=== PATIENT | male | born 1935 | race Caucasian/White ===

== ENCOUNTER 2016-12-12 14:32 | Emergency (ER) | payer MEDICARE, OTHER ==
[2014-08-06 15:09] VITALS: BMI 23.9
[~2016-12-12 14:32] MED LIST: ACETAMINOPHEN325 MG NG; ADVAIR 100/501 DISK INH; ARICEPT10 MG PO; CATAPRES0.1 MG; CATAPRES0.1 MG PO; DULCOLAX10 MG/SUPP RC; FLOMAX0.4 MG PO; GLUCOPHAGE500 MG; HYDROCODON-ACE1 EAC7 PO; HYDROCODON-ACE1 EAC8 PO; IPRAT-ALBUT 0.5-3 ML UPD; LISINOPRIL10 MG PO; MILK OF MAGNESI30 ML PO; MIRALAX17 GM PO; NEURONTIN 300300 MG PO; NITROSTAT0.4 MG; ONDANSETRON4 MG/2 M3 PO; PRILOSEC20 MG PO; PROAIR HFA8.5 GM INH; PROTONIX40 MG PO; SENOKOT-S TABLE1 TAB PO; VENTOLIN HFA18 GM; ZOCOR40 MG PO
[2016-12-12 17:15] LABS: BASOPHILS 0 % (0.0-2.0); EOSINOPHILS 9.3 % (0-7); HEMATOCRIT 37.6 % (42.0-54.0); HEMOGLOBIN 12.7 g/dL (13.5-17.5); IMMATURE GRANULOCYTES 0.4 % (0-5); LYMPHOCYTES 7.6 % (15-50); MCH 32.6 pg (26.0-34.0); MCHC 33.8 g/dL (31.0-37.0); MCV 96.4 fL (80.0-100.0); MEAN PLATELET VOLUME 10.3 fL (7.4-10.4); MONOCYTES 5.1 % (2-11); NEUTROPHILS 77.6 % (40-80); PLATELET COUNT 80 10x3/uL (130-400); WBC 2.4 10x3/uL (4.8-10.8)
[2016-12-12 17:28] LABS: ALBUMIN 3.3 g/dL (3.4-5.0); ALKALINE PHOSPHATASE 149 U/L (46-116); ALT (SGPT) 36 U/L (10-68); CALC OSMOLALITY 275 mosm/kg (275-300); CALCIUM 8.7 mg/dL (8.5-10.1); CARBON DIOXIDE 24.8 mmol/L (21.0-32.0); CHLORIDE - SERUM 103 mmol/L (98-107); GLUCOSE 92 mg/dL (74-106); POTASSIUM - SERUM 3.9 mmol/L (3.5-5.1); PROTEIN - SERUM 4.8 g/dL (6.4-8.2); SODIUM 137 mmol/L (136-145); UREA NITROGEN 18 mg/dL (7-18); eGFR NON AFRICAN AMERICAN 76 mL/min (90-120)
[2016-12-12 17:58] LABS: PLATELET ESTIMATE DECREASED
[2016-12-12 18:06] LABS: APPEARANCE CLEAR (CLEAR); BILIRUBIN NEGATIVE (NEGATIVE); COLOR YELLOW (YELLOW); GLUCOSE NEGATIVE (NEGATIVE); KETONE NEGATIVE (NEGATIVE); LEUKOCYTE ESTERASE TRACE (NEGATIVE); NITRITE NEGATIVE (NEGATIVE); PROTEIN NEGATIVE (NEGATIVE); SPECIFIC GRAVITY 1.015 (1.005-1.020); UROBILINOGEN NORMAL (NORMAL)
[2016-12-12 18:07] LABS: BACTERIA FEW /hpf (NONE SEEN); EPITHELIAL CELLS NSEEN /hpf (0-5); RED CELLS - URINE 0-5 /hpf (0-5); WHITE CELLS - URINE 0-5 /hpf (0-5)
== END 2016-12-12 20:00 | disposition home or self-care (01) ==
LOC: D.ER 14:32
PROVIDERS: Emergency Medicine; Physician Assistant Medical
DX: S40.012A Contusion of left shoulder, initial encounter (principal); W01.0XXA Fall on same level from slipping, tripping and stumbling without subsequent striking against object, initial encounter; Y93.89 Activity, other specified; Y92.129 Unspecified place in nursing home as the place of occurrence of the external cause; S70.02XA Contusion of left hip, initial encounter; J44.9 Chronic obstructive pulmonary disease, unspecified; F03.90 Unspecified dementia, unspecified severity, without behavioral disturbance, psychotic disturbance, mood disturbance, and anxiety; I10 Essential (primary) hypertension

== ENCOUNTER 2016-12-31 20:07 | Emergency (ER) | payer MEDICARE, OTHER ==
[2014-08-06 15:09] VITALS: BMI 23.9
[2016-12-31 20:47] LABS: HEMATOCRIT 34.9 % (42.0-54.0); HEMOGLOBIN 11.5 g/dL (13.5-17.5); MCH 31.9 pg (26.0-34.0); MCV 96.7 fL (80.0-100.0); MEAN PLATELET VOLUME 10.3 fL (7.4-10.4); PLATELET COUNT 88 10x3/uL (130-400); RBC 3.61 10x6/uL (4.20-6.10); RDW 13.8 % (11.5-14.5); WBC 2.7 10x3/uL (4.8-10.8)
[2016-12-31 20:58] LABS: ALBUMIN 3.2 g/dL (3.4-5.0); ALKALINE PHOSPHATASE 163 U/L (46-116); ALT (SGPT) 37 U/L (10-68); AMYLASE - SERUM 82 U/L (25-115); BILIRUBIN - TOTAL 0.36 mg/dL (0.2-1.3); CALC OSMOLALITY 281 mosm/kg (275-300); CALCIUM 8.8 mg/dL (8.5-10.1); CARBON DIOXIDE 25.6 mmol/L (21.0-32.0); CHLORIDE - SERUM 104 mmol/L (98-107); CREATINE KINASE 35 UL (21-232); CREATININE - SERUM 0.8 mg/dL (0.6-1.3); GLUCOSE 122 mg/dL (74-106); LIPASE 320 U/L (73-393); POTASSIUM - SERUM 3.8 mmol/L (3.5-5.1); PROTEIN - SERUM 7.7 g/dL (6.4-8.2); SODIUM 140 mmol/L (136-145); TROPONIN-I 0.032 ng/mL (0.000-0.060); UREA NITROGEN 18 mg/dL (7-18); eGFR NON AFRICAN AMERICAN > 90 mL/min (90-120)
[2016-12-31 21:15] LABS: BASOPHILS 1 % (0.0-2.0); EOSINOPHILS 5 % (0-7); LYMPHOCYTES 29 % (15-50); MONOCYTES 2 % (2-11); NEUTROPHILS 63 % (40-80); PLATELET ESTIMATE DECREASED
== END 2016-12-31 23:20 | disposition home or self-care (01) ==
LOC: D.ER 20:07
PROVIDERS: Family Medicine
DX: S39.012A Strain of muscle, fascia and tendon of lower back, initial encounter (principal); W05.0XXA Fall from non-moving wheelchair, initial encounter; Y93.89 Activity, other specified; Y92.129 Unspecified place in nursing home as the place of occurrence of the external cause; J44.9 Chronic obstructive pulmonary disease, unspecified; F03.90 Unspecified dementia, unspecified severity, without behavioral disturbance, psychotic disturbance, mood disturbance, and anxiety; E11.9 Type 2 diabetes mellitus without complications

== ENCOUNTER 2017-01-08 15:19 | Emergency (ER) | payer MEDICARE, OTHER ==
[2014-08-06 15:09] VITALS: BMI 23.9
[2017-01-08 16:19] LABS: APPEARANCE CLEAR (CLEAR); BILIRUBIN NEGATIVE (NEGATIVE); COLOR YELLOW (YELLOW); GLUCOSE NEGATIVE (NEGATIVE); KETONE NEGATIVE (NEGATIVE); LEUKOCYTE ESTERASE NEGATIVE (NEGATIVE); NITRITE NEGATIVE (NEGATIVE); PROTEIN NEGATIVE (NEGATIVE); UROBILINOGEN NORMAL (NORMAL)
== END 2017-01-08 19:35 | disposition home or self-care (01) ==
LOC: D.ER 15:19
PROVIDERS: Nurse Practitioner Family
DX: S30.0XXA Contusion of lower back and pelvis, initial encounter (principal); W01.0XXA Fall on same level from slipping, tripping and stumbling without subsequent striking against object, initial encounter; Y93.89 Activity, other specified; Y92.129 Unspecified place in nursing home as the place of occurrence of the external cause; J44.9 Chronic obstructive pulmonary disease, unspecified; F03.90 Unspecified dementia, unspecified severity, without behavioral disturbance, psychotic disturbance, mood disturbance, and anxiety; E11.9 Type 2 diabetes mellitus without complications; Z86.73 Personal history of transient ischemic attack (TIA), and cerebral infarction without residual deficits

== ENCOUNTER → 2017-02-10 09:16 | Outpatient (CLI) | payer MEDICARE, OTHER ==
[2014-08-06 15:09] VITALS: BMI 23.9
[2017-02-10 11:15] LABS: CREATININE - SERUM 0.9 mg/dL (0.6-1.3)
--- NOTE | 2017-02-14 06:59 | EEG ---
PATIENT:KAREL SOLANO DATE OF SERVICE: 02/10/17 MEDICAL RECORD: [id number] DATE OF : 35 LOCATION: D.MRI ADMISSION DATE: 02/10/17 REFERRING PHYSICIAN: INTERPRETING PHYSICIAN: LEANNA HENRIQUEZ MD DATE OF SERVICE: 02/10/2017 Referred by myself as an outpatient. ELECTROENCEPHALOGRAM NUMBER: [id number] DATE OF EXAMINATION: 02/10/2017 at 10:00 a.m. TECHNICAL DATA: This electroencephalographic recording consisted of approximately 20 minutes of data collection utilizing the international 10/20 system of electrode placement and both referential and non-referential montages. Sixteen channels of electrocerebral recording are accompanied by a 17th channel dedicated to the electrocardiographic rhythm and 2 channels of electromyographic recording. Recording is performed in the awake and drowsy states utilizing activation by photic stimulation. ELECTROENCEPHALOGRAPHIC DATA: The awake state comprises approximately 40% of the recorded electrocerebral activity. Electromyographic artifact is prominent and rapid eye movements are seen. The posterior dominant background consists of a symmetric, semi-rhythmic, waxing and waning 6-7 Hz theta activity, which is suppressed by eye opening. The drowsy state comprises the remaining portion of the recorded electrocerebral activity. Electromyographic artifact is diminished and rapid eye movements are not seen. Occasional irregular, generalized and symmetric slowing in the delta range is also observed in stage I sleep. No focal slowing is identified. No epileptiform discharges are seen. Photic stimulation induces no abnormal change in the recorded electrocerebral activity. INTERPRETATION: Background slow (awake and drowsy). This electroencephalographic recording is indicative of a mild diffuse encephalopathy. TRANSINT:[id number] Voice Confirmation ID: [id number] DOCUMENT ID: [id number] LEANNA HENRIQUEZ MD at 0659 CC: [id number] DICTATION DATE: 02/11/17 0729 PATIENT ADMITTING REPRESENTATIVE: 02/11/17 0810 DEP CLI 02/10/17 [place] [address] [place] [address]
== END | disposition home or self-care (01) ==
LOC: D.CN 02-06 10:00 → D.LAB 02-06 14:00 → D.MRI 09:16
PROVIDERS: Psychiatry & Neurology Neurology
DX: G30.8 Other Alzheimer's disease (principal); I63.139 Cerebral infarction due to embolism of unspecified carotid artery

== ENCOUNTER 2017-11-12 01:02 | Emergency (ER) | payer MEDICARE, OTHER ==
[2014-08-06 15:09] VITALS: BMI 23.9
[2017-11-12 01:33] LABS: BASOPHILS 0 % (0-2); HEMATOCRIT 34.7 % (42.0-54.0); HEMOGLOBIN 11.8 g/dL (13.5-17.5); LYMPHOCYTES 15.8 % (15-50); MCH 32.9 pg (26.0-34.0); MCV 96.7 fL (80.0-100.0); MEAN PLATELET VOLUME 9.3 fL (7.4-10.4); NEUTROPHILS 69.2 % (40-80); PLATELET COUNT 92 10x3/uL (130-400); RBC 3.59 10x6/uL (4.20-6.10); RDW 13.8 % (11.5-14.5); WBC 3.4 10x3/uL (4.8-10.8)
[2017-11-12 01:45] LABS: ALBUMIN 3.2 g/dL (3.4-5.0); ALKALINE PHOSPHATASE 197 U/L (46-116); ALT (SGPT) 41 U/L (10-68); CALC OSMOLALITY 279 mosm/kg (275-300); CALCIUM 8.6 mg/dL (8.5-10.1); CARBON DIOXIDE 27.5 mmol/L (21.0-32.0); CHLORIDE - SERUM 102 mmol/L (98-107); CREATININE - SERUM 0.9 mg/dL (0.6-1.3); GLUCOSE 111 mg/dL (74-106); POTASSIUM - SERUM 3.8 mmol/L (3.5-5.1); SODIUM 138 mmol/L (136-145); UREA NITROGEN 20 mg/dL (7-18); eGFR NON AFRICAN AMERICAN 86 mL/min (90-120)
[2017-11-12 01:53] LABS: LIPASE 275 U/L (73-393); PRO BNP 251 pg/mL (0-450); TROPONIN-I < 0.017 ng/mL (0.000-0.060)
== END 2017-11-12 02:40 | disposition home or self-care (01) ==
LOC: D.ER 01:02
PROVIDERS: Family Medicine
DX: K52.9 Noninfective gastroenteritis and colitis, unspecified (principal); J44.9 Chronic obstructive pulmonary disease, unspecified; E11.9 Type 2 diabetes mellitus without complications

== ENCOUNTER 2018-06-01 06:04 | Emergency (ER) | payer MEDICARE, OTHER ==
[~2018-06-01] VITALS: Ht 167.6 cm; Wt 75.0 kg
[2018-06-01 06:34] VITALS: Ht 167.6 cm; Wt 75.0 kg
[2018-06-01] MEDS ORDERED: BAYER CHEWABLE81 MG PO (06:35)
[2018-06-01] MEDS ORDERED: FLOMAX0.4 MG PO (06:36)
[2018-06-01] MEDS ORDERED: SEROQUEL50 MG PO (06:37)
[2018-06-01] MEDS ORDERED: IMODIUM2 MG (06:38)
[2018-06-01] MEDS ORDERED: LOMOTIL TABLET1 TAB (06:39)
[2018-06-01 07:17] LABS: HEMATOCRIT 32.3 % (42.0-54.0); HEMOGLOBIN 10.8 g/dL (13.5-17.5); MCH 31.5 pg (26.0-34.0); MCHC 33.4 g/dL (31.0-37.0); MCV 94.2 fL (80.0-100.0); MEAN PLATELET VOLUME 9.7 fL (7.4-10.4); PLATELET COUNT 83 10x3/uL (130-400); RBC 3.43 10x6/uL (4.20-6.10); WBC 2.5 10x3/uL (4.8-10.8)
[2018-06-01 07:24] LABS: APTT 31.2 SECONDS (22.8-39.4); INR 1.1 (0.85-1.17); PROTIME 13.8 SECONDS (11.6-15.0)
[2018-06-01 07:40] LABS: ALBUMIN 2.9 g/dL (3.4-5.0); ALKALINE PHOSPHATASE 144 U/L (46-116); ALT (SGPT) 29 U/L (10-68); BILIRUBIN - TOTAL 0.48 mg/dL (0.2-1.3); CALC OSMOLALITY 277 mosm/kg (275-300); CALCIUM 8.7 mg/dL (8.5-10.1); CARBON DIOXIDE 26.2 mmol/L (21.0-32.0); CHLORIDE - SERUM 107 mmol/L (98-107); CREATININE - SERUM 0.8 mg/dL (0.6-1.3); GLUCOSE 101 mg/dL (74-106); POTASSIUM - SERUM 3.9 mmol/L (3.5-5.1); PROTEIN - SERUM 7.6 g/dL (6.4-8.2); SODIUM 139 mmol/L (136-145); UREA NITROGEN 13 mg/dL (7-18); eGFR NON AFRICAN AMERICAN > 90 mL/min (90-120)
[2018-06-01 07:56] LABS: EOSINOPHILS 22 % (0-7); LYMPHOCYTES 24 % (15-50); MONOCYTES 1 % (2-11); NEUTROPHILS 53 % (40-80); PLATELET ESTIMATE DECREASED
[2018-06-01 08:00] LABS: CKMB 1.1 U/L (0.0-3.6); CREATINE KINASE 38 UL (21-232); PRO BNP 158 pg/mL (0-450)
[2018-06-01 08:01] LABS: TROPONIN-I < 0.017 ng/mL (0.000-0.060)
[2018-06-01 14:05] VITALS: BP 124/64
== END 2018-06-01 14:07 ==
LOC: D.ER 06:04
PROVIDERS: Emergency Medicine
DX: R07.9 Chest pain, unspecified (principal); E11.9 Type 2 diabetes mellitus without complications; I10 Essential (primary) hypertension

== ENCOUNTER 2018-12-16 17:17 | Emergency (ER) | payer MEDICARE, OTHER ==
[~2018-12-16] VITALS: Ht 167.6 cm; Wt 63.5 kg
[~2018-12-16 17:17] MED LIST changes: +BAYER CHEWABLE81 MG PO; +IMODIUM2 MG; +LOMOTIL TABLET1 TAB; +SEROQUEL50 MG PO
[2018-12-16 17:19] VITALS: Ht 167.6 cm; Wt 63.5 kg
[2018-12-17 00:30] VITALS: BP 122/76
[2019-01-03] MEDS ORDERED: ROBITUSSIN DM 110 ML (14:27)
[2019-01-03] MEDS ORDERED: HYDROCODON-ACE1 EAC7 PO (14:27)
== END 2018-12-17 00:30 | disposition home or self-care (01) ==
LOC: D.ER 17:17
DX: S42.212A Unspecified displaced fracture of surgical neck of left humerus, initial encounter for closed fracture (principal); W18.30XA Fall on same level, unspecified, initial encounter; Y93.89 Activity, other specified; Y92.099 Unspecified place in other non-institutional residence as the place of occurrence of the external cause; M25.562 Pain in left knee; Z86.73 Personal history of transient ischemic attack (TIA), and cerebral infarction without residual deficits; E11.9 Type 2 diabetes mellitus without complications; I10 Essential (primary) hypertension; J44.9 Chronic obstructive pulmonary disease, unspecified; G30.9 Alzheimer's disease, unspecified; F02.80 Dementia in other diseases classified elsewhere, unspecified severity, without behavioral disturbance, psychotic disturbance, mood disturbance, and anxiety

== ENCOUNTER 2018-12-17 12:14 | Emergency (ER) | payer MEDICARE, OTHER ==
[~2018-12-17] VITALS: Ht 167.6 cm; Wt 63.6 kg
[2018-12-17 12:16] VITALS: Ht 167.6 cm; Wt 63.6 kg
[2018-12-17 13:18] LABS: HEMATOCRIT 29.6 % (42.0-54.0); MCH 31.8 pg (26.0-34.0); MCHC 33.8 g/dL (31.0-37.0); MCV 94.3 fL (80.0-100.0); MEAN PLATELET VOLUME 9.6 fL (7.4-10.4); RBC 3.14 10x6/uL (4.20-6.10); RDW 14.1 % (11.5-14.5); WBC 2.7 10x3/uL (4.8-10.8)
[2018-12-17 13:36] LABS: PLATELET COUNT 107 10x3/uL (130-400)
[2018-12-17 13:38] LABS: APPEARANCE CLEAR (CLEAR); BILIRUBIN NEGATIVE (NEGATIVE); COLOR YELLOW (YELLOW); GLUCOSE NEGATIVE (NEGATIVE); KETONE NEGATIVE (NEGATIVE); NITRITE NEGATIVE (NEGATIVE); PROTEIN NEGATIVE (NEGATIVE); SPECIFIC GRAVITY 1.015 (1.005-1.020)
[2018-12-17 13:39] LABS: ALBUMIN 2.8 g/dL (3.4-5.0); ALKALINE PHOSPHATASE 119 U/L (46-116); ALT (SGPT) 24 U/L (10-68); BILIRUBIN - TOTAL 0.41 mg/dL (0.2-1.3); CALC OSMOLALITY 278 mosm/kg (275-300); CALCIUM 8.3 mg/dL (8.5-10.1); CARBON DIOXIDE 25.6 mmol/L (21.0-32.0); CHLORIDE - SERUM 101 mmol/L (98-107); CREATININE - SERUM 0.9 mg/dL (0.6-1.3); GLUCOSE 115 mg/dL (74-106); POTASSIUM - SERUM 4.1 mmol/L (3.5-5.1); PROTEIN - SERUM 7.9 g/dL (6.4-8.2); SODIUM 138 mmol/L (136-145); UREA NITROGEN 17 mg/dL (7-18); eGFR NON AFRICAN AMERICAN 85 mL/min (90-120)
[2018-12-17 13:43] LABS: INR 1.13 (0.85-1.17)
[2018-12-17 13:44] LABS: APTT 32.5 SECONDS (22.8-39.4)
[2018-12-17 14:44] LABS: EOSINOPHILS 26 % (0-7); LYMPHOCYTES 25 % (15-50); MONOCYTES 9 % (2-11); NEUTROPHILS 39 % (40-80); PLATELET ESTIMATE DECREASED
[2018-12-17 15:20] VITALS: BP 117/73
[2019-01-03] MEDS ORDERED: HYDROCODON-ACE1 EAC7 PO (14:27)
[2019-01-03] MEDS ORDERED: ROBITUSSIN DM 110 ML (14:27)
== END 2018-12-17 14:30 | disposition home or self-care (01) ==
LOC: D.ER 12:14
PROVIDERS: Family Medicine
DX: R04.0 Epistaxis (principal)

== ENCOUNTER 2019-01-04 07:10 | Day surgery (SDC) | payer MEDICARE, OTHER ==
[~2019-01-04] VITALS: Ht 167.6 cm; Wt 70.3 kg
[~2019-01-04 07:10] MED LIST changes: +ROBITUSSIN DM 110 ML
[2019-01-04 07:54] LABS: HEMATOCRIT 30.3 % (42.0-54.0); HEMOGLOBIN 9.8 g/dL (13.5-17.5); MCH 30.7 pg (26.0-34.0); MCHC 32.3 g/dL (31.0-37.0); MEAN PLATELET VOLUME 9.3 fL (7.4-10.4); PLATELET COUNT 114 10x3/uL (130-400); RBC 3.19 10x6/uL (4.20-6.10); RDW 14.1 % (11.5-14.5)
[2019-01-04 08:16] LABS: CALC OSMOLALITY 278 mosm/kg (275-300); CALCIUM 8.7 mg/dL (8.5-10.1); CARBON DIOXIDE 24.5 mmol/L (21.0-32.0); CHLORIDE - SERUM 105 mmol/L (98-107); GLUCOSE 99 mg/dL (74-106); POTASSIUM - SERUM 4.1 mmol/L (3.5-5.1); SODIUM 140 mmol/L (136-145); UREA NITROGEN 12 mg/dL (7-18); eGFR NON AFRICAN AMERICAN 76 mL/min (90-120)
[2019-01-04 08:22] LABS: WBC 1.9 10x3/uL (4.8-10.8)
[2019-01-04 08:39] VITALS: Ht 167.6 cm; Wt 70.3 kg
[2019-01-04 09:07] LABS: BASOPHILS 2 % (0-2); EOSINOPHILS 12 % (0-7); LYMPHOCYTES 36 % (15-50); MONOCYTES 5 % (2-11); NEUTROPHILS 45 % (40-80); PLATELET ESTIMATE DECREASED
--- NOTE | 2019-01-12 09:48 | OP ---
PATIENT NAME: KAREL SOLANO MEDICAL RECORD: [id number] :35 LOCATION:DALI ADMISSION DATE: SURGEON: YNES BOWLES MD DATE OF OPERATION: 01/04/2019 PREOPERATIVE DIAGNOSIS: Chronic dislocation of the left shoulder. POSTOPERATIVE DIAGNOSIS: Chronic dislocation of the left shoulder. PROCEDURE: Closed reduction of the left shoulder under TIVA anesthesia. SURGEON: Ynes Bolwes MD ANESTHESIA: TIVA with a preoperative interscalene block. INTRAOPERATIVE COMPLICATIONS: None. SUMMARY OF PATHOLOGIC FINDINGS: Essentially none. INDICATIONS: This is an 83-year-old male who has severe dementia, fell and by and by had complained of shoulder pain. X-rays taken showed that he had inferior dislocation at the office. He was scheduled for open versus closed reduction given the degree of chronicity versus the unknown degree of chronicity. OPERATIVE SUMMARY IN DETAIL: After obtaining the appropriate preoperative orthopedic surgery consent as well as anesthetic consultation, evaluation and clearance, the patient was brought to the operating room and placed on the operating table in supine position. After adequate TIVA anesthesia was administered, the patient was left on the [facility]. Simple traction countertraction resulted in an excellent closed reduction. On the table, radiographs showed no evidence for fracture, no evidence of fragmentation and the shoulder was seated nicely. The patient was awakened and taken back to recovery room in stable condition. TRANSINT:[id number] Voice Confirmation ID: [id number] DOCUMENT ID: [id number] YNES BOWLES MD at 0948 CC: [id number] DICTATION DATE: 01/11/19 1107 OFFICE MESSENGER HELPER: 01/11/19 1314 [facility] 01/04/19 [place] [id number] [place] [id number]
== END 2019-01-04 12:10 | disposition home or self-care (01) ==
LOC: D.OPS 07:10 → D.PAN 09:15 → D.OPS 09:15
PROVIDERS: Anesthesiology; ATTEND Orthopaedic Surgery
DX: M24.412 Recurrent dislocation, left shoulder (principal)

== ENCOUNTER 2019-02-06 02:51 | Emergency (ER) | payer MEDICARE, OTHER ==
[~2019-02-06] VITALS: Ht 167.6 cm; Wt 72.7 kg
[2019-02-06 02:57] VITALS: Ht 167.6 cm; Wt 72.7 kg
[2019-02-06 04:36] LABS: HEMOGLOBIN 8.4 g/dL (13.5-17.5); MCH 29.9 pg (26.0-34.0); MCHC 32.3 g/dL (31.0-37.0); MCV 92.5 fL (80.0-100.0); MEAN PLATELET VOLUME 9.5 fL (7.4-10.4); RBC 2.81 10x6/uL (4.20-6.10); RDW 13.8 % (11.5-14.5)
[2019-02-06 04:38] LABS: PLATELET COUNT 88 10x3/uL (130-400); WBC 1.7 10x3/uL (4.8-10.8)
[2019-02-06 04:39] LABS: INR 1.18 (0.85-1.17); PROTIME 14.5 SECONDS (11.6-15.0)
[2019-02-06 04:45] LABS: ALBUMIN 2.5 g/dL (3.4-5.0); ALKALINE PHOSPHATASE 105 U/L (46-116); ALT (SGPT) 21 U/L (10-68); BILIRUBIN - TOTAL 0.37 mg/dL (0.2-1.3); CALC OSMOLALITY 279 mosm/kg (275-300); CALCIUM 8.1 mg/dL (8.5-10.1); CARBON DIOXIDE 27.5 mmol/L (21.0-32.0); CHLORIDE - SERUM 105 mmol/L (98-107); CREATININE - SERUM 0.9 mg/dL (0.6-1.3); GLUCOSE 92 mg/dL (74-106); POTASSIUM - SERUM 3.8 mmol/L (3.5-5.1); PROTEIN - SERUM 7.1 g/dL (6.4-8.2); SODIUM 140 mmol/L (136-145); UREA NITROGEN 16 mg/dL (7-18); eGFR NON AFRICAN AMERICAN 85 mL/min (90-120)
[2019-02-06 05:10] LABS: EOSINOPHILS 28 % (0-7); LYMPHOCYTES 22 % (15-50); MONOCYTES 2 % (2-11); NEUTROPHILS 48 % (40-80); PLATELET ESTIMATE DECREASED
[2019-02-06 07:00] VITALS: BP 128/61
== END 2019-02-06 07:03 | disposition home or self-care (01) ==
LOC: D.ER 02:51
PROVIDERS: Family Medicine
DX: D61.818 Other pancytopenia (principal)

== ENCOUNTER 2019-03-06 13:40 | Emergency (ER) | payer MEDICARE, OTHER ==
[~2019-03-06] VITALS: Ht 167.6 cm; Wt 68.2 kg
[2019-03-06 13:45] VITALS: BP 111/58; Ht 167.6 cm; Wt 68.2 kg
== END 2019-03-06 16:44 ==
LOC: D.ER 13:40
DX: F03.90 Unspecified dementia, unspecified severity, without behavioral disturbance, psychotic disturbance, mood disturbance, and anxiety (principal); M79.18 Myalgia, other site

== ENCOUNTER 2019-03-15 06:52 | Emergency (ER) | payer MEDICARE, OTHER ==
[~2019-03-15] VITALS: Ht 167.6 cm; Wt 65.9 kg
[2019-03-15 06:54] VITALS: Ht 167.6 cm; Wt 65.9 kg
[2019-03-15] MEDS ORDERED: BACLOFEN20 M1 PO (11:34)
[2019-03-15] MEDS ORDERED: VOLTAREN75 MG PO (11:34)
[2019-03-15 14:07] VITALS: BP 105/66
== END 2019-03-15 14:06 ==
LOC: D.ER 06:52
DX: M79.18 Myalgia, other site (principal); W18.30XA Fall on same level, unspecified, initial encounter; Y93.89 Activity, other specified; Y92.129 Unspecified place in nursing home as the place of occurrence of the external cause

== ENCOUNTER 2019-03-20 07:59 | Inpatient (IN) | payer MEDICARE, OTHER ==
[~2019-03-20] VITALS: Ht 167.6 cm; Wt 54.4 kg
[~2019-03-20 07:59] MED LIST changes: +ACETAMINOPHEN325 MG PO; +BACLOFEN20 M1 PO; +VOLTAREN75 MG PO
[2019-03-20 08:24] LABS: BASOPHILS 0.4 % (0-2); EOSINOPHILS 6.7 % (0-7); HEMATOCRIT 26.3 % (42.0-54.0); HEMOGLOBIN 8.5 g/dL (13.5-17.5); LYMPHOCYTES 20.4 % (15-50); MCH 28.2 pg (26.0-34.0); MCHC 32.3 g/dL (31.0-37.0); MCV 87.4 fL (80.0-100.0); MEAN PLATELET VOLUME 9.1 fL (7.4-10.4); MONOCYTES 7.5 % (2-11); RBC 3.01 10x6/uL (4.20-6.10); RDW 14.2 % (11.5-14.5); WBC 2.6 10x3/uL (4.8-10.8)
[2019-03-20 08:30] LABS: PLATELET COUNT 138 10x3/uL (130-400)
[2019-03-20 08:34] LABS: APTT 31.7 SECONDS (22.8-39.4); INR 1.12 (0.85-1.17); PROTIME 13.9 SECONDS (11.6-15.0)
[2019-03-20] MEDS ORDERED: ZOLOFT50 MG PO (08:35)
[2019-03-20 08:37] LABS: ALKALINE PHOSPHATASE 138 U/L (46-116); ALT (SGPT) 27 U/L (10-68); BILIRUBIN - TOTAL 0.44 mg/dL (0.2-1.3); CALC OSMOLALITY 282 mosm/kg (275-300); CARBON DIOXIDE 26.1 mmol/L (21.0-32.0); CHLORIDE - SERUM 103 mmol/L (98-107); CREATININE - SERUM 1.1 mg/dL (0.6-1.3); GLUCOSE 114 mg/dL (74-106); POTASSIUM - SERUM 4.7 mmol/L (3.5-5.1); SODIUM 138 mmol/L (136-145); UREA NITROGEN 28 mg/dL (7-18); eGFR NON AFRICAN AMERICAN 68 mL/min (90-120)
[2019-03-20] MEDS ORDERED: ZOFRAN ODT4 MG/UDTAB PO (08:42)
[2019-03-20] MEDS ORDERED: LOMOTIL 2.5-0.1 EAC1 PO (08:43)
[2019-03-20 08:49] LABS: CKMB 0.6 U/L (0.0-3.6); CREATINE KINASE 34 UL (21-232); MAGNESIUM - SERUM 2.2 mg/dL (1.8-2.4); THYROID STIMULATING HORMONE 1.69 uIU/mL (0.36-3.74)
[2019-03-20 08:51] LABS: TROPONIN-I < 0.017 ng/mL (0.000-0.060)
[2019-03-20 09:21] VITALS: BP 151/76
[2019-03-20 09:47] LABS: UDS - AMPHET NEGATIVE QUAL (NEGATIVE); UDS - BARB NEGATIVE QUAL (NEGATIVE); UDS - BENZO NEGATIVE QUAL (NEGATIVE); UDS - COCAINE NEGATIVE QUAL (NEGATIVE); UDS - OPIATE NEGATIVE QUAL (NEGATIVE); UDS - PCP NEGATIVE QUAL (NEGATIVE); UDS - THC NEGATIVE QUAL (NEGATIVE)
[2019-03-20 09:48] LABS: APPEARANCE CLEAR (CLEAR); BACTERIA FEW /hpf (NONE SEEN); BILIRUBIN NEGATIVE (NEGATIVE); COLOR YELLOW (YELLOW); EPITHELIAL CELLS 0-5 /hpf (0-5); GLUCOSE NEGATIVE (NEGATIVE); KETONE NEGATIVE (NEGATIVE); MUCUS <1+ /lpf (NONE SEEN); NITRITE NEGATIVE (NEGATIVE); PROTEIN NEGATIVE (NEGATIVE); SPECIFIC GRAVITY 1.005 (1.005-1.020); WHITE CELLS - URINE RARE /hpf (0-5)
[2019-03-20 09:49] LABS: GRANULAR CAST RARE /lpf (NONE SEEN); HYALINE CAST OCC /lpf (NONE SEEN)
[2019-03-20 11:01] VITALS: BP 153/71
[2019-03-20 12:30] VITALS: BP 156/75
[2019-03-20 13:39] LABS: % SATURATION 6 % (15-55); IRON 24 ug/dl (35-150); TOTAL IRON BIND CAPACITY 365 ug/dl (260-445); UNSAT IRON BIND CAPACITY 341 ug/dl (150-375)
--- NOTE | 2019-03-20 14:09 | MORECARE ---
CASE MANAGEMENT DISCHARGE SUMMARY PATIENT: KAREL SOLANO UNIT: [id number] ADM DATE: 03/20/19 AGE: 83 : 35 SEX: M ROOM/BED: D.2232 AUTHOR: BOSTON RIVAS PHYSICIAN: REFERRING PHYSICIAN: KENDAL CARRERA MD DATE OF SERVICE: 03/20/19 Discharge Plan Patient Name: KAREL SOLANO [facility] [facility] 1935 Planned Disposition: Anticipated Discharge Date: Discharge Date: Expected LOS: Initial Reviewer: [email or web address] Initial Review Date: 03/20/2019 Generated: 03/20/19 3:09 pm Patient Name: KAREL SOLANO Page 07638 at 1409 All edits/amendments must be made on the electronic document DICTATION DATE: 03/20/191408 GRAPHIC COORDINATOR: BONNY 03/20/19 1409 RPT#: [id number] DC DATE: STATUS: ADM IN [facility] [address] [place] [address] END OF REPORT
[2019-03-20 16:14] VITALS: BP 141/63; BMI 19.4
[2019-03-20 21:17] VITALS: BP 107/46
[2019-03-21 00:56] VITALS: BP 124/50
[2019-03-21 05:04] VITALS: BP 138/43
[2019-03-21 06:54] LABS: BASOPHILS 0 % (0-2); EOSINOPHILS 0.9 % (0-7); HEMATOCRIT 26.9 % (42.0-54.0); HEMOGLOBIN 8.7 g/dL (13.5-17.5); IMMATURE GRANULOCYTES 0.2 % (0-5); LYMPHOCYTES 9.6 % (15-50); MCH 28.2 pg (26.0-34.0); MCHC 32.3 g/dL (31.0-37.0); MCV 87.3 fL (80.0-100.0); MEAN PLATELET VOLUME 9.2 fL (7.4-10.4); MONOCYTES 9.6 % (2-11); NEUTROPHILS 79.7 % (40-80); PLATELET COUNT 160 10x3/uL (130-400); RBC 3.08 10x6/uL (4.20-6.10); RDW 14.3 % (11.5-14.5)
[2019-03-21 07:08] LABS: WBC 4.6 10x3/uL (4.8-10.8)
[2019-03-21 07:25] LABS: ALBUMIN 3.1 g/dL (3.4-5.0); ALKALINE PHOSPHATASE 125 U/L (46-116); ALT (SGPT) 32 U/L (10-68); BILIRUBIN - TOTAL 0.41 mg/dL (0.2-1.3); CALC OSMOLALITY 275 mosm/kg (275-300); CARBON DIOXIDE 22.1 mmol/L (21.0-32.0); CHLORIDE - SERUM 103 mmol/L (98-107); CREATININE - SERUM 0.9 mg/dL (0.6-1.3); GLUCOSE 108 mg/dL (74-106); POTASSIUM - SERUM 4.5 mmol/L (3.5-5.1); SODIUM 136 mmol/L (136-145); eGFR NON AFRICAN AMERICAN 85 mL/min (90-120)
[2019-03-21 07:34] LABS: UREA NITROGEN 20 mg/dL (7-18)
[2019-03-21 08:58] VITALS: BP 130/52
[2019-03-21 12:02] VITALS: Ht 167.6 cm; Wt 54.4 kg
[2019-03-21 12:03] LABS: APPEARANCE CLEAR (CLEAR); BILIRUBIN NEGATIVE (NEGATIVE); COLOR YELLOW (YELLOW); GLUCOSE NEGATIVE (NEGATIVE); KETONE NEGATIVE (NEGATIVE); NITRITE NEGATIVE (NEGATIVE); PROTEIN NEGATIVE (NEGATIVE); UROBILINOGEN NORMAL (NORMAL)
[2019-03-21 12:04] LABS: WHITE CELLS - URINE 0-5 /hpf (0-5)
[2019-03-21 12:05] LABS: EPITHELIAL CELLS OCC /hpf (0-5)
[2019-03-21 13:26] VITALS: BP 130/40
[2019-03-21 18:00] VITALS: BP 139/61
[2019-03-21 20:00] VITALS: BP 98/50
[2019-03-22] VITALS: BP 108/55
[2019-03-22 04:00] VITALS: BP 103/54
[2019-03-22 05:07] LABS: BASOPHILS 0.2 % (0-2); EOSINOPHILS 0.5 % (0-7); HEMOGLOBIN 7.6 g/dL (13.5-17.5); IMMATURE GRANULOCYTES 0.3 % (0-5); LYMPHOCYTES 10.1 % (15-50); MCH 27.7 pg (26.0-34.0); MCHC 31.7 g/dL (31.0-37.0); MCV 87.6 fL (80.0-100.0); MEAN PLATELET VOLUME 8.4 fL (7.4-10.4); MONOCYTES 9.6 % (2-11); NEUTROPHILS 79.3 % (40-80); RBC 2.74 10x6/uL (4.20-6.10); RDW 14.4 % (11.5-14.5)
[2019-03-22 05:10] LABS: PLATELET COUNT 122 10x3/uL (130-400)
--- NOTE | 2019-03-22 08:26 | HP ---
PATIENT: KAREL SOLANO MEDICAL RECORD: [id number] ACCOUNT: [id number] LOCATION:D.MS [place] : 35 ADMISSION DATE: 03/20/19 PCP: KENDAL CARRERA HISTORY AND PHYSICAL EXAMINATION DATE OF ADMISSION: 03/20/2019 CHIEF COMPLAINT: Altered mental status. HISTORY OF PRESENT ILLNESS: This is an 83-year-old male who resides at [facility]. He does have a history of dementia and CVA with a degree of altered mental status, but really got worse in the last 12 hours prior to arrival at the Emergency Department. He is not able to answer any questions. His daughter is in the room. She had spoken to him on the phone just a couple of nights before and he was in his usual state with minor confusion. Workup in the Emergency Department, urinalysis showed 1+ blood, few bacteria. Urine drug screen was negative. CBC with a white count of 2600, hemoglobin is 8.5 (has chronic anemia, recent ER visit showed hemoglobin of 8.4). His INR was fine. His basic metabolic panel is okay except BUN a little elevated at 28. Liver functions were normal. Troponin was normal. TSH was normal. CT of the head showed nothing acute, there were changes consistent with old CVA. Hemoccult in the Emergency Department was reportedly positive. He is admitted for further evaluation. When I am seeing this patient, he is lying almost sideways in the bed. He is unable to respond to me. He is very focused in reaching for his penis as if he is in pain and he is moaning. Daughter is concerned about a possible kidney stone, he has had one in the past. PAST MEDICAL AND SURGICAL HISTORY: He has diabetes, diet controlled; hypertension; dementia, CVA; left-sided hemiplegia and hemiparesis; history of macular degeneration; and COPD. He had a subdural hematoma. PAST SURGICAL HISTORY: [place] hole for subdural hematoma and has had surgery on his left foot. He has had a tonsillectomy. DRUG ALLERGIES: None known. HOME MEDICATIONS: Include Baclofen 20 mg q.i.d. p.r.n. muscle pain, Flomax 0.4 mg once a day, simvastatin 40 mg at bedtime, Tylenol 650 mg q.4 hours p.r.n. pain or fever, aspirin 81 mg a day, diclofenac 75 mg twice a day, Nimitz 5/325 one or two every 4 hours as needed for pain, Seroquel 50 mg at bedtime, sertraline 50 mg daily, Robitussin-DM p.r.n. cough. Lomotil 1 for 8 hours p.r.n. diarrhea, Imodium p.r.n. diarrhea, Zofran orally disintegrating tablet q.8 hours p.r.n. nausea or vomiting, Protonix 40 mg twice a day, donepezil 10 mg at bedtime. SOCIAL HISTORY: He is retired. He is living at the [facility]. FAMILY HISTORY: Parents with hypertension. Siblings with hypertension. HABITS: No tobacco, alcohol or drugs. REVIEW OF SYSTEMS: Gathered from his daughter: CONSTITUTIONAL: He has generalized weakness with left-sided hemiparesis due to stroke. CARDIAC: No ongoing chest pain or heart problems right now. HISTORY AND PHYSICAL [id number] KAREL SOLANO GASTROINTESTINAL: No significant constipation, diarrhea or nausea. GENITOURINARY: He has had a history of a kidney stone. MUSCULOSKELETAL: He has some arthritis. NEUROLOGIC: Dementia, old stroke. PSYCHIATRY: Some depression and anxiety. PHYSICAL EXAMINATION: VITAL SIGNS: Temperature 97.5, pulse 68, respirations 16, blood pressure 141/63, O2 sats 96%. GENERAL: He is confused. He is awake. He does not acknowledge my presence. He does not respond to me to voice or tactile stimuli. He moans out as if he is in pain and reaching for his penis. HEENT: Unremarkable. NECK: Supple. HEART: Regular rate and rhythm. LUNGS: Fairly clear. ABDOMEN: Soft. There is no significant tenderness to palpation. EXTREMITIES: No edema. NEUROLOGIC: He has dementia. LABORATORY DATA: Urine yellow and clear, specific gravity 1.005. There is 1+ blood, 5-10 red blood cells, 0-5 white blood cells, few bacteria. Urine drug screen is totally negative. CBC with a white count of 2600, hemoglobin 8.5, platelets number 138,000, normal differential. INR 1.12. Basic metabolic panel is all okay except BUN elevated at 28. Magnesium is 2.2. Iron is low at 24, TIBC is on the high side of normal at 365, iron saturation is low at 6. Ferritin is normal at 67. Liver functions are all normal except alkaline phosphatase a little elevated at 138. Troponin 0.017. Albumin a little low at 3.0. TSH normal at 1.69. Hemoccult is positive. Chest x-ray was done in the ER showing no definite acute pulmonary disease identified. ASSESSMENT: 1. Altered mental status on his usual dementia. 2. Hematuria. 3. Pain, possibly a kidney stone. 4. Anemia, which is more chronic even though he does have a heme-positive stool several weeks ago. Recent hemoglobin was actually 1/10 of a point lower than what it is now. PLAN: GI has been consulted. Actually, they have ordered a CT of the abdomen. We will follow up with results of that. He may need to see urologist. We will give him some fluids. We will try to control his pain. Other tests or procedures as warranted. TRANSINT:[id number] Voice Confirmation ID: [id number] DOCUMENT ID: [id number] HISTORY AND PHYSICAL [id number] KAREL SOLANO WILLIAM MD at 0826 CC: [id number] DICTATION DATE: 03/20/192326 EMPLOYEE COMMUNICATIONS MANAGER: 03/21/19 0421 ADM IN [facility] [address] [place] [address]
[2019-03-22 09:49] VITALS: BP 137/54
[2019-03-22 14:38] VITALS: BP 134/53
--- NOTE | 2019-03-22 16:01 | MORECARE ---
CASE MANAGEMENT DISCHARGE SUMMARY PATIENT: KAREL WARNER UNIT: [id number] ADM DATE: 03/20/19 AGE: 84 : 35 SEX: M ROOM/BED: D.2232 AUTHOR: EVELYN,DOC PHYSICIAN: REFERRING PHYSICIAN: KENDAL CARRERA MD DATE OF SERVICE: 03/22/19 Discharge Plan Patient Name: KAREL WARNER Facility: [facility]:[place] : 1935 Planned Disposition: Usp Facility Anticipated Discharge Date: Discharge Date: Expected LOS: Initial Reviewer: [email or web address] Initial Review Date: 03/20/2019 Generated: 03/22/19 5:01 pm Comments DCP- Discharge Planning Updated by [email or web address]: Shila Mcclure on 03/22/19 2:[address] Patient Name: KAREL WARNER Admission Status: ER Accout number: [id number] Admission Date: 03-20-2019 : 1935 Admission Diagnosis: Attending: KENDAL CARRERA Current LOS: 2 Anticipated DC Date: Planned Disposition: Usp Facility Primary Insurance: MEDICARE A & B Discharge Planning Comments: CM met in patient's room with his daughter and POA, Lisa Warner. She states that he is living at [facility], but will be unable to return there. States she would like him to go to a skilled facility. BIBIANA for SNF given with list and numbers. She states she would like to tour some and then let me know her decision. She lives in [place] and will have OP surgery on Monday. I provided her with my business card and wrote the number to weekend pillowcase folder when she knows what SNF she would like her father to go to. She states she will call and let us know. CM will continue to follow and assist with discharge planning/needs. Pet Crematory Worker: Shila Mcclure DCPIA - Discharge Planning Initial Assessment Updated by [email or web address]: Shila Mcclure on 03/22/19 3:52 pm * Is the patient Alert and Oriented? No * How many steps to enter\exit or inside your home? 0/0 * PCP Dr. Carrera * Pharmacy [facility] * Preadmission Environment Assisted Living * Facility Name [facility] * ADLs Total Dependent * Other Equipment All equipment provided by [facility]/He is wheelchair bound * List name and contact numbers for known caregivers / representatives who currently or will assist patient after discharge: Timmy - DTR and [facility] [phone] * Verbal permission to speak to the caregivers and representatives has been obtained from the patient. Yes * Community resources currently utilized Assisted Living * Please name any agencies selected above. [facility] * Additional services required to return to the preadmission environment? Yes * Can the patient safely return to the preadmission environment? No * Has this patient been hospitalized within the prior 30 days at any hospital? No Last DP export: 03/20/19 1:09 p Patient Name: KAREL WARNER Page 57110 at 1601 All edits/amendments must be made on the electronic document DICTATION DATE: 03/22/191599 ANESTHETIC ASSISTANT: BONNY 03/22/19 1600 RPT#: [id number] DC DATE: STATUS: ADM IN [facility] [address] [place] [address] END OF REPORT
[2019-03-22 19:53] VITALS: BP 104/46
[2019-03-23] VITALS: BP 126/66
[2019-03-23 04:00] VITALS: BP 142/71
[2019-03-23 06:12] LABS: FOLATE (FOLIC ACID) - SERUM 19.2 ng/mL (>3.0)
[2019-03-23 09:34] VITALS: BP 133/51
[2019-03-23 11:10] LABS: MCH 28.2 pg (26.0-34.0); MCHC 32.8 g/dL (31.0-37.0); MCV 86.2 fL (80.0-100.0); MEAN PLATELET VOLUME 8.7 fL (7.4-10.4); PLATELET COUNT 112 10x3/uL (130-400); RDW 14.5 % (11.5-14.5)
[2019-03-23 11:16] LABS: HEMATOCRIT 29.3 % (42.0-54.0); HEMOGLOBIN 9.6 g/dL (13.5-17.5); WBC 2.2 10x3/uL (4.8-10.8)
[2019-03-23 11:58] LABS: ANISOCYTOSIS 1+; LYMPHOCYTES 26 % (15-50); MONOCYTES 7 % (2-11); NEUTROPHILS 67 % (40-80); PLATELET ESTIMATE DECREASED
[2019-03-23 13:09] VITALS: BP 103/45
--- NOTE | 2019-03-23 13:36 | MORECARE ---
CASE MANAGEMENT DISCHARGE SUMMARY PATIENT: KAREL WARNER UNIT: [id number] ADM DATE: 03/20/19 AGE: 84 : 35 SEX: M ROOM/BED: D.2232 AUTHOR: EVELYN,DOC PHYSICIAN: REFERRING PHYSICIAN: KENDAL CARRERA MD DATE OF SERVICE: 03/23/19 Discharge Plan Patient Name: KAREL WARNER Facility: [facility]:[place] : 1935 Planned Disposition: Group Home Facility Anticipated Discharge Date: Discharge Date: Expected LOS: Initial Reviewer: [email or web address] Initial Review Date: 03/20/2019 Generated: 03/23/19 2:35 pm Comments DCP- Discharge Planning Updated by [email or web address]: Ana Julian on 03/23/19 12:[address] Patient Name: KAREL WARNER Admission Status: ER Accout number: [id number] Admission Date: 03-20-2019 : 1935 Admission Diagnosis: Attending: KENDAL CARRERA Current LOS: 3 Anticipated DC Date: Planned Disposition: Group Home Facility Primary Insurance: MEDICARE A & B Discharge Planning Comments: DAUGHTER ASKED TO SPEAK WITH CM ABOUT DC PLANS,. SHE HAS WENT TO [facility] AND WOULD LIKE FATHER TO D/C TO THEM WHEN HE IS READY. Electrode Cleaning Machine Operator: Ana Julian DCP- Discharge Planning Updated by [email or web address]: Shila Mcclure on 03/22/19 2:[address] Patient Name: KAREL WARNER Admission Status: ER Accout number: [id number] Admission Date: 03-20-2019 : 1935 Admission Diagnosis: Attending: KENDAL CARRERA Current LOS: 2 Anticipated DC Date: Planned Disposition: Group Home Facility Primary Insurance: MEDICARE A & B Discharge Planning Comments: CM met in patient's room with his daughter and KAMALJIT Timmy. She states that he is living at [facility], but will be unable to return there. States she would like him to go to a skilled facility. BIBIANA for SNF given with list and numbers. She states she would like to tour some and then let me know her decision. She lives in [place] and will have OP surgery on Monday. I provided her with my business card and wrote the number to weekend caseworker protective services when she knows what SNF she would like her father to go to. She states she will call and let us know. CM will continue to follow and assist with discharge planning/needs. Electrode Cleaning Machine Operator: Shila Andersonluan DCPIA - Discharge Planning Initial Assessment Updated by [email or web address]: Shila Mcclure on 03/22/19 3:52 pm * Is the patient Alert and Oriented? No * How many steps to enter\exit or inside your home? 0/0 * PCP Dr. Carrera * Pharmacy [facility] * Preadmission Environment Assisted Living * Facility Name [facility] * ADLs Total Dependent * Other Equipment All equipment provided by [facility]/He is wheelchair bound * List name and contact numbers for known caregivers / representatives who currently or will assist patient after discharge: Lisa Warner - DTR and [facility] - [phone] * Verbal permission to speak to the caregivers and representatives has been obtained from the patient. Yes * Community resources currently utilized Assisted Living * Please name any agencies selected above. [facility] * Additional services required to return to the preadmission environment? Yes * Can the patient safely return to the preadmission environment? No * Has this patient been hospitalized within the prior 30 days at any hospital? No Last DP export: 03/22/19 3:01 p Patient Name: KAREL WARNER Page 42459 at 1336 All edits/amendments must be made on the electronic document DICTATION DATE: 03/23/191334 VENDING MACHINE ATTENDANT: BONNY 03/23/19 1335 RPT#: [id number] DC DATE: STATUS: ADM IN [facility] [address] [place] [address] END OF REPORT
[2019-03-23 16:26] VITALS: BP 110/46
[2019-03-23 19:52] VITALS: BP 107/66
[2019-03-24 04:00] VITALS: BP 140/64
[2019-03-24 05:29] LABS: BASOPHILS 0.6 % (0-2); EOSINOPHILS 7.3 % (0-7); HEMOGLOBIN 9.8 g/dL (13.5-17.5); IMMATURE GRANULOCYTES 1.7 % (0-5); MCH 28.4 pg (26.0-34.0); MCHC 32.7 g/dL (31.0-37.0); MEAN PLATELET VOLUME 9.6 fL (7.4-10.4); MONOCYTES 17.4 % (2-11); PLATELET COUNT 120 10x3/uL (130-400); RBC 3.45 10x6/uL (4.20-6.10); RDW 14.5 % (11.5-14.5)
[2019-03-24 05:32] LABS: WBC 1.8 10x3/uL (4.8-10.8)
[2019-03-24 05:46] LABS: CALC OSMOLALITY 281 mosm/kg (275-300); CALCIUM 8.3 mg/dL (8.5-10.1); CARBON DIOXIDE 26.1 mmol/L (21.0-32.0); CHLORIDE - SERUM 107 mmol/L (98-107); CREATININE - SERUM 0.8 mg/dL (0.6-1.3); GLUCOSE 111 mg/dL (74-106); POTASSIUM - SERUM 3.6 mmol/L (3.5-5.1); SODIUM 141 mmol/L (136-145); UREA NITROGEN 12 mg/dL (7-18); eGFR NON AFRICAN AMERICAN > 90 mL/min (90-120)
[2019-03-24 09:03] VITALS: BP 139/68
[2019-03-24 12:40] VITALS: BP 116/54
[2019-03-24 17:09] VITALS: BP 112/65
[2019-03-24 20:00] VITALS: BP 136/70
[2019-03-25] VITALS: BP 150/80
[2019-03-25 03:00] VITALS: BP 143/51
[2019-03-25 06:03] LABS: BASOPHILS 0.7 % (0-2); EOSINOPHILS 11.4 % (0-7); HEMATOCRIT 30.9 % (42.0-54.0); HEMOGLOBIN 10.2 g/dL (13.5-17.5); IMMATURE GRANULOCYTES 1.3 % (0-5); LYMPHOCYTES 32.2 % (15-50); MCH 28.5 pg (26.0-34.0); MCV 86.3 fL (80.0-100.0); MEAN PLATELET VOLUME 9.5 fL (7.4-10.4); MONOCYTES 14.8 % (2-11); NEUTROPHILS 39.6 % (40-80); PLATELET COUNT 124 10x3/uL (130-400); RBC 3.58 10x6/uL (4.20-6.10); RDW 14.3 % (11.5-14.5)
[2019-03-25 06:18] LABS: CALC OSMOLALITY 278 mosm/kg (275-300); CALCIUM 8.3 mg/dL (8.5-10.1); CARBON DIOXIDE 24.2 mmol/L (21.0-32.0); CHLORIDE - SERUM 107 mmol/L (98-107); CREATININE - SERUM 0.7 mg/dL (0.6-1.3); GLUCOSE 105 mg/dL (74-106); POTASSIUM - SERUM 3.4 mmol/L (3.5-5.1); SODIUM 139 mmol/L (136-145); UREA NITROGEN 14 mg/dL (7-18); eGFR NON AFRICAN AMERICAN > 90 mL/min (90-120)
[2019-03-25 06:56] LABS: WBC 1.5 10x3/uL (4.8-10.8)
[2019-03-25 08:46] VITALS: BP 111/75
--- NOTE | 2019-03-25 11:15 | MORECARE ---
CASE MANAGEMENT DISCHARGE SUMMARY PATIENT: KAREL WARNER UNIT: [id number] ADM DATE: 03/20/19 AGE: 84 : 35 SEX: M ROOM/BED: D.2232 AUTHOR: EVELYN,DOC PHYSICIAN: REFERRING PHYSICIAN: KENDAL CARRERA MD DATE OF SERVICE: 03/25/19 Discharge Plan Patient Name: KAREL WARNER Facility: [facility]:[place] : 1935 Planned Disposition: Mcfp Facility Anticipated Discharge Date: Discharge Date: Expected LOS: Initial Reviewer: [email or web address] Initial Review Date: 03/20/2019 Generated: 03/25/19 12:15 pm Comments DCP- Discharge Planning Updated by [email or web address]: Ana Julian on 03/23/19 12:[address] Patient Name: KAREL WARNER Admission Status: ER Accout number: [id number] Admission Date: 03-20-2019 : 1935 Admission Diagnosis: Attending: KENDAL CARRERA Current LOS: 3 Anticipated DC Date: Planned Disposition: Mcfp Facility Primary Insurance: MEDICARE A & B Discharge Planning Comments: DAUGHTER ASKED TO SPEAK WITH CM ABOUT DC PLANS,. SHE HAS WENT TO [facility] AND WOULD LIKE FATHER TO D/C TO THEM WHEN HE IS READY. Director Loan: Ana Julian DCP- Discharge Planning Updated by [email or web address]: Shila Mcclure on 03/22/19 2:[address] Patient Name: KAREL WARNER Admission Status: ER Accout number: [id number] Admission Date: 03-20-2019 : 1935 Admission Diagnosis: Attending: KENDAL CARRERA Current LOS: 2 Anticipated DC Date: Planned Disposition: Mcfp Facility Primary Insurance: MEDICARE A & B Discharge Planning Comments: CM met in patient's room with his daughter and KAMALJIT Timmy. She states that he is living at [facility], but will be unable to return there. States she would like him to go to a skilled facility. [facility]NA for SNF given with list and numbers. She states she would like to tour some and then let me know her decision. She lives in [place] and will have OP surgery on Monday. I provided her with my business card and wrote the number to weekend case sealer when she knows what SNF she would like her father to go to. She states she will call and let us know. CM will continue to follow and assist with discharge planning/needs. Director Loan: Shila Andersonluan DCPIA - Discharge Planning Initial Assessment Updated by [email or web address]: Shila Mcclure on 03/22/19 3:52 pm * Is the patient Alert and Oriented? No * How many steps to enter\exit or inside your home? 0/0 * PCP Dr. Carrera * Pharmacy [facility] * Preadmission Environment Assisted Living * Facility Name [facility] * ADLs Total Dependent * Other Equipment All equipment provided by [facility]/He is wheelchair bound * List name and contact numbers for known caregivers / representatives who currently or will assist patient after discharge: Lisa Warner - DTR and [facility] - [phone] * Verbal permission to speak to the caregivers and representatives has been obtained from the patient. Yes * Community resources currently utilized Assisted Living * Please name any agencies selected above. [facility] * Additional services required to return to the preadmission environment? Yes * Can the patient safely return to the preadmission environment? No * Has this patient been hospitalized within the prior 30 days at any hospital? No External Providers External Provider: [facility] Next Contact Date: Service Request Date: Service Type: Resolution: Reviewer: Comments: Last DP export: 03/23/19 12:35 p Patient Name: KAREL WARNER Page 56635 at 1115 All edits/amendments must be made on the electronic document DICTATION DATE: 03/25/19 111 RETAIL BUYER: BONNY 03/25/19 111 RPT#: [id number] DC DATE: STATUS: ADM IN [facility] [address] [place] [address] END OF REPORT
--- NOTE | 2019-03-25 11:25 | MORECARE ---
CASE MANAGEMENT DISCHARGE SUMMARY PATIENT: KAREL WARNER UNIT: [id number] ADM DATE: 03/20/19 AGE: 84 : 35 SEX: M ROOM/BED: D.2232 AUTHOR: EVELYN,DOC PHYSICIAN: REFERRING PHYSICIAN: KENDAL CARRERA MD DATE OF SERVICE: 03/25/19 Discharge Plan Patient Name: KAREL WARNER Facility: [facility]:[place] : 1935 Planned Disposition: Group Home Facility Anticipated Discharge Date: Discharge Date: Expected LOS: Initial Reviewer: [email or web address] Initial Review Date: 03/20/2019 Generated: 03/25/19 12:24 pm Comments DCP- Discharge Planning Updated by [email or web address]: Shila Mcclure on 03/25/19 10:[address] Note from weekend states daughter would like referral to [facility] for SNF. I faxed clinical to [facility] and left message with Estelita to return call. Daughter is unavailable at this time to sign BIBIANA form. CM will continue to follow and assist with discharge planning/needs. DCP- Discharge Planning Updated by [email or web address]: Ana Julian on 03/23/19 12:[address] Patient Name: KAREL WARNER Admission Status: ER Accout number: [id number] Admission Date: 03-20-2019 : 1935 Admission Diagnosis: Attending: KENDAL CARRERA Current LOS: 3 Anticipated DC Date: Planned Disposition: Group Home Facility Primary Insurance: MEDICARE A & B Discharge Planning Comments: DAUGHTER ASKED TO SPEAK WITH CM ABOUT DC PLANS,. SHE HAS WENT TO [facility] AND WOULD LIKE FATHER TO D/C TO THEM WHEN HE IS READY. Superintendent Of Generation: Ana Julian DCP- Discharge Planning Updated by [email or web address]: Shila Mcclure on 03/22/19 2:[address] Patient Name: KAREL WARNER Admission Status: ER Accout number: [id number] Admission Date: 03-20-2019 : 1935 Admission Diagnosis: Attending: KENDAL CARRERA Current LOS: 2 Anticipated DC Date: Planned Disposition: Group Home Facility Primary Insurance: MEDICARE A & B Discharge Planning Comments: CM met in patient's room with his daughter and Lisa MARI. She states that he is living at [facility], but will be unable to return there. States she would like him to go to a skilled facility. BIB[facility]NA for SNF given with list and numbers. She states she would like to tour some and then let me know her decision. She lives in [place] and will have OP surgery on Monday. I provided her with my business card and wrote the number to weekend manager of case when she knows what SNF she would like her father to go to. She states she will call and let us know. CM will continue to follow and assist with discharge planning/needs. Superintendent Of Generation: Shila Mcclure DCPIA - Discharge Planning Initial Assessment Updated by [email or web address]: Shila Mcclure on 03/22/19 3:52 pm * Is the patient Alert and Oriented? No * How many steps to enter\exit or inside your home? 0/0 * PCP Dr. Carrera * Pharmacy [facility] * Preadmission Environment Assisted Living * Facility Name [facility] * ADLs Total Dependent * Other Equipment All equipment provided by [facility]/He is wheelchair bound * List name and contact numbers for known caregivers / representatives who currently or will assist patient after discharge: Lisa Warner - DTR and POA - [phone] * Verbal permission to speak to the caregivers and representatives has been obtained from the patient. Yes * Community resources currently utilized Assisted Living * Please name any agencies selected above. [facility] * Additional services required to return to the preadmission environment? Yes * Can the patient safely return to the preadmission environment? No * Has this patient been hospitalized within the prior 30 days at any hospital? No Last DP export: 03/25/19 10:15 a Patient Name: KAREL WARNER Page 27033 at 1125 All edits/amendments must be made on the electronic document DICTATION DATE: 03/25/191123 OPERATIONS MANAGER STATION: BONNY 03/25/191123 RPT#: [id number] DC DATE: STATUS: ADM IN [facility] [address] [place] [address] END OF REPORT
[2019-03-25 12:30] VITALS: BP 121/67
--- NOTE | 2019-03-25 13:44 | MORECARE ---
CASE MANAGEMENT DISCHARGE SUMMARY PATIENT: KAREL WARNER UNIT: [id number] ADM DATE: 03/20/19 AGE: 84 : 35 SEX: M ROOM/BED: D.2232 AUTHOR: BOSTON RIVAS PHYSICIAN: REFERRING PHYSICIAN: KENDAL CARRERA MD DATE OF SERVICE: 03/25/19 Discharge Plan Patient Name: KAREL WARNER Facility: [facility]:[place] : 1935 Planned Disposition: Detention Facility Anticipated Discharge Date: Discharge Date: Expected LOS: Initial Reviewer: [email or web address] Initial Review Date: 03/20/2019 Generated: 03/25/19 2:44 pm Comments DCP- Discharge Planning Updated by [email or web address]: Shila Mcclure on 03/25/19 12:[address] Received a call from Violeta at [facility]. She states that the patient's was in [facility] and they owe 60,000 dollars so they are unable to accept the patient to their facility. I attempted to call his daughter, , without success. CM will continue to follow and assist with discharge planning/needs. DCP- Discharge Planning Updated by [id number]: Shila Mcclure on 03/25/19 10:[address] Note from weekend states daughter would like referral to [facility] for SNF. I faxed clinical to [facility] and left message with Estelita to return call. Daughter is unavailable at this time to sign BIBIANA form. CM will continue to follow and assist with discharge planning/needs. DCP- Discharge Planning Updated by [email or web address]: Ana Julian on 03/23/19 12:[address] Patient Name: KAREL WARNER Admission Status: ER Accout number: [id number] Admission Date: 03-20-2019 : 1935 Admission Diagnosis: Attending: KENDAL CARRERA Current LOS: 3 Anticipated DC Date: Planned Disposition: Detention Facility Primary Insurance: MEDICARE A & B Discharge Planning Comments: DAUGHTER ASKED TO SPEAK WITH CM ABOUT DC PLANS,. SHE HAS WENT TO [facility] AND WOULD LIKE FATHER TO D/C TO THEM WHEN HE IS READY. Manager Research And Development: Ana Julian DCP- Discharge Planning Updated by [email or web address]: Shila Mcclure on 03/22/19 2:[address] Patient Name: KAREL WARNER Admission Status: ER Accout number: [id number] Admission Date: 03-20-2019 : 1935 Admission Diagnosis: Attending: KENDAL CARRERA Current LOS: 2 Anticipated DC Date: Planned Disposition: Detention Facility Primary Insurance: MEDICARE A & B Discharge Planning Comments: CM met in patient's room with his daughter and POA, Lisa Warner. She states that he is living at [facility], but will be unable to return there. States she would like him to go to a skilled facility. BIBIANA for SNF given with list and numbers. She states she would like to tour some and then let me know her decision. She lives in [place] and will have OP surgery on Monday. I provided her with my business card and wrote the number to weekend housing case manager when she knows what SNF she would like her father to go to. She states she will call and let us know. CM will continue to follow and assist with discharge planning/needs. Manager Research And Development: Shila Mcclure DCPIA - Discharge Planning Initial Assessment Updated by [email or web address]: Shila Andersonluan on 03/22/19 3:52 pm * Is the patient Alert and Oriented? No * How many steps to enter\exit or inside your home? 0/0 * PCP Dr. Carrera * Pharmacy [facility] * Preadmission Environment Assisted Living * Facility Name [facility] * ADLs Total Dependent * Other Equipment All equipment provided by [facility]/He is wheelchair bound * List name and contact numbers for known caregivers / representatives who currently or will assist patient after discharge: Lisa Warner - DTR and KAMALJIT - [phone] * Verbal permission to speak to the caregivers and representatives has been obtained from the patient. Yes * Community resources currently utilized Assisted Living * Please name any agencies selected above. [facility] * Additional services required to return to the preadmission environment? Yes * Can the patient safely return to the preadmission environment? No * Has this patient been hospitalized within the prior 30 days at any hospital? No Last DP export: 03/25/19 10:24 a Patient Name: KAREL WARNER Page 20373 at 1344 All edits/amendments must be made on the electronic document DICTATION DATE: 03/25/191342 ACTIVITIES ATTENDANT: BONNY 03/25/19 1343 RPT#: [id number] PR DATE: STATUS: ADM IN [facility] [address] [place] [address] END OF REPORT
[2019-03-25 17:01] VITALS: BP 121/62
[2019-03-25 21:31] VITALS: BP 114/58
[2019-03-26 00:18] VITALS: BP 124/64
[2019-03-26 05:03] VITALS: BP 120/63
[2019-03-26 05:49] LABS: HEMOGLOBIN 9.9 g/dL (13.5-17.5); MCH 28.3 pg (26.0-34.0); MCV 85.7 fL (80.0-100.0); MEAN PLATELET VOLUME 9.4 fL (7.4-10.4); PLATELET COUNT 119 10x3/uL (130-400); RDW 14.5 % (11.5-14.5)
[2019-03-26 06:17] LABS: CALC OSMOLALITY 276 mosm/kg (275-300); CALCIUM 8.1 mg/dL (8.5-10.1); CARBON DIOXIDE 24.6 mmol/L (21.0-32.0); CHLORIDE - SERUM 106 mmol/L (98-107); CREATININE - SERUM 0.7 mg/dL (0.6-1.3); GLUCOSE 106 mg/dL (74-106); POTASSIUM - SERUM 3.4 mmol/L (3.5-5.1); SODIUM 138 mmol/L (136-145); UREA NITROGEN 14 mg/dL (7-18); eGFR NON AFRICAN AMERICAN > 90 mL/min (90-120)
[2019-03-26 06:33] LABS: WBC 1.7 10x3/uL (4.8-10.8)
[2019-03-26 08:14] LABS: ANISOCYTOSIS OCC; EOSINOPHILS 2 % (0-7); HYPOCHROMASIA OCC; LYMPHOCYTES 30 % (15-50); MONOCYTES 12 % (2-11); NEUTROPHILS 56 % (40-80); PLATELET ESTIMATE NORMAL; ROULEAUX OCC
[2019-03-26 08:43] VITALS: BP 149/74
[2019-03-26 14:40] VITALS: BP 144/73
--- NOTE | 2019-03-26 14:51 | MORECARE ---
CASE MANAGEMENT DISCHARGE SUMMARY PATIENT: KAREL WARNER UNIT: [id number] ADM DATE: 03/20/19 AGE: 84 : 35 SEX: M ROOM/BED: D.2232 AUTHOR: EVELYN,DOC PHYSICIAN: REFERRING PHYSICIAN: KENDAL CARRERA MD DATE OF SERVICE: 03/26/19 Discharge Plan Patient Name: KAREL WARNER Facility: [facility]:[place] : 1935 Planned Disposition: Jail Facility Anticipated Discharge Date: Discharge Date: Expected LOS: Initial Reviewer: [email or web address] Initial Review Date: 03/20/2019 Generated: 03/26/19 3:51 pm Comments DCP- Discharge Planning Updated by [email or web address]: Shila Mcclure on 03/26/19 1:[address] I called patient's daughter, , and informed her that he was denied [facility] admission and why. She chose [facility] for SNF. She states that she has him on a waiting list to come their for LTC when available. I called and spoke to karin Tate for [facility], and clinical faxed. CM will continue to follow and assist with discharge planning/needs. DCP- Discharge Planning Updated by [email or web address]: Shila Mcclure on 03/25/19 12:[address] Received a call from Violeta at [facility]. She states that the patient's was in [facility] and they owe 60,000 dollars so they are unable to accept the patient to their facility. I attempted to call his daughter, , without success. CM will continue to follow and assist with discharge planning/needs. DCP- Discharge Planning Updated by [email or web address]: Shila Mcclure on 03/25/19 10:[address] Note from weekend states daughter would like referral to [facility] for SNF. I faxed clinical to [facility] and left message with Esetlita to return call. Daughter is unavailable at this time to sign BIBIANA form. CM will continue to follow and assist with discharge planning/needs. DCP- Discharge Planning Updated by [email or web address]: Ana Julian on 03/23/19 12:[address] Patient Name: KAREL WARNER Admission Status: ER Accout number: [id number] Admission Date: 03-20-2019 : 1935 Admission Diagnosis: Attending: KENDAL CARRERA Current LOS: 3 Anticipated DC Date: Planned Disposition: Jail Facility Primary Insurance: MEDICARE A & B Discharge Planning Comments: DAUGHTER ASKED TO SPEAK WITH CM ABOUT DC PLANS,. SHE HAS WENT TO [facility] AND WOULD LIKE FATHER TO D/C TO THEM WHEN HE IS READY. Supervisor Rose Grading: Ana Julian DCP- Discharge Planning Updated by [id number]: Shila Mcclure on 03/22/19 2:[address] Patient Name: KAREL WARNER Admission Status: ER Accout number: [id number] Admission Date: 03-20-2019 : 1935 Admission Diagnosis: Attending: KENDAL CARRERA Current LOS: 2 Anticipated DC Date: Planned Disposition: Jail Facility Primary Insurance: MEDICARE A & B Discharge Planning Comments: CM met in patient's room with his daughter and KAMALJIT, Lisa Warner. She states that he is living at [facility], but will be unable to return there. States she would like him to go to a skilled facility. BIBIANA for SNF given with list and numbers. She states she would like to tour some and then let me know her decision. She lives in [place] and will have OP surgery on Monday. I provided her with my business card and wrote the number to weekend case monitor when she knows what SNF she would like her father to go to. She states she will call and let us know. CM will continue to follow and assist with discharge planning/needs. Supervisor Rose Grading: Shila Mcclure DCPIA - Discharge Planning Initial Assessment Updated by [email or web address]: Shila Mcclure on 03/22/19 3:52 pm * Is the patient Alert and Oriented? No * How many steps to enter\exit or inside your home? 0/0 * PCP Dr. Carrera * Pharmacy [facility] * Preadmission Environment Assisted Living * Facility Name [facility] * ADLs Total Dependent * Other Equipment All equipment provided by [facility]/He is wheelchair bound * List name and contact numbers for known caregivers / representatives who currently or will assist patient after discharge: Lisa Warner - DTR and KAMALJIT - [phone] * Verbal permission to speak to the caregivers and representatives has been obtained from the patient. Yes * Community resources currently utilized Assisted Living * Please name any agencies selected above. [facility] * Additional services required to return to the preadmission environment? Yes * Can the patient safely return to the preadmission environment? No * Has this patient been hospitalized within the prior 30 days at any hospital? No External Providers External Provider: [facility] Next Contact Date: Service Request Date: Service Type: Resolution: Reviewer: Comments: Coverage Notice Reviewer: [id number] - Shila Mcclure Notice Issued Date-Time: 03/26/2019 14:50 Notice Type: Patient Choice Letter Notice Delivered To: Family Member Relationship to Patient: Daughter Engineering Professionals Name: Lisa Warner Delivery Method: PHONE - Phone Danae Days: Prior Verbal Notification: Recipient Understood Notice: Yes Recipient Signature: Med Rec Note Co-signed by Attending: Coverage Notice Comment: BIBIANA for [facility] DP export: 03/25/19 12:44 p Patient Name: KAREL WARNER Page 83303 at 1451 All edits/amendments must be made on the electronic document DICTATION DATE: 03/26/19 1450 CYTOTECHNOLOGIST/CYTOLOGY SUPERVISOR: BONNY 03/26/19 1450 RPT#: [id number] DC DATE: STATUS: ADM IN [facility] [address] [place] [address] END OF REPORT
[2019-03-26 16:55] VITALS: BP 151/71
[2019-03-26 20:49] VITALS: BP 145/74
[2019-03-27 01:20] VITALS: BP 154/60
[2019-03-27 04:47] VITALS: BP 132/72
[2019-03-27 08:33] LABS: CALC OSMOLALITY 271 mosm/kg (275-300); CALCIUM 8.5 mg/dL (8.5-10.1); CARBON DIOXIDE 24.9 mmol/L (21.0-32.0); CHLORIDE - SERUM 105 mmol/L (98-107); CREATININE - SERUM 0.7 mg/dL (0.6-1.3); GLUCOSE 102 mg/dL (74-106); POTASSIUM - SERUM 3.9 mmol/L (3.5-5.1); SODIUM 137 mmol/L (136-145); eGFR NON AFRICAN AMERICAN > 90 mL/min (90-120)
[2019-03-27 08:35] LABS: UREA NITROGEN 8 mg/dL (7-18)
[2019-03-27 08:36] VITALS: BP 165/81
[2019-03-27 08:50] LABS: BASOPHILS 0.7 % (0-2); EOSINOPHILS 6.9 % (0-7); HEMATOCRIT 32.8 % (42.0-54.0); HEMOGLOBIN 10.7 g/dL (13.5-17.5); IMMATURE GRANULOCYTES 0.4 % (0-5); LYMPHOCYTES 19.1 % (15-50); MCH 28.3 pg (26.0-34.0); MCHC 32.6 g/dL (31.0-37.0); MCV 86.8 fL (80.0-100.0); MEAN PLATELET VOLUME 9.2 fL (7.4-10.4); MONOCYTES 11.9 % (2-11); PLATELET COUNT 123 10x3/uL (130-400); RBC 3.78 10x6/uL (4.20-6.10); RDW 14.8 % (11.5-14.5)
[2019-03-27 08:51] LABS: WBC 2.8 10x3/uL (4.8-10.8)
[2019-03-27 13:58] VITALS: BP 130/62
--- NOTE | 2019-03-27 14:54 | MORECARE ---
CASE MANAGEMENT DISCHARGE SUMMARY PATIENT: KAREL WARNER UNIT: [id number] ADM DATE: 03/20/19 AGE: 84 : 35 SEX: M ROOM/BED: D.2232 AUTHOR: EVELYNDOC PHYSICIAN: REFERRING PHYSICIAN: KENDAL CARRERA MD DATE OF SERVICE: 03/27/19 Discharge Plan Patient Name: KAREL WARNER Facility: [facility]:[place] : 1935 Planned Disposition: Retirement Facility Anticipated Discharge Date: Discharge Date: Expected LOS: Initial Reviewer: [email or web address] Initial Review Date: 03/20/2019 Generated: 03/27/19 3:54 pm Comments DCP- Discharge Planning Updated by [email or web address]: Shila Ren on 03/27/19 1:[address] Received acceptance for [facility], discharge orders have already been written. Donna states he will be admitted to [facility] [place]. He is going to a skilled bed. I have called his daughter, , she agrees with discharge. His niece, Rachel Fry, will sign admission papers today. Rachel Fry's number is [phone]. He will need to transport via ambulance. institutional research coordinator informed. CM will continue to follow and assist with discharge planning/needs. DCP- Discharge Planning Updated by [id number]: Shila Ren on 03/26/19 1:[address] I called patient's daughter, , and informed her that he was denied [place] admission and why. She chose [facility] for SNF. She states that she has him on a waiting list to come their for LTC when available. I called and spoke to karin Tate for [facility], and clinical faxed. CM will continue to follow and assist with discharge planning/needs. DCP- Discharge Planning Updated by [email or web address]: Shila Ren on 03/25/19 12:[address] Received a call from Violeta at [facility]. She states that the patient's was in [facility] and they owe 60,000 dollars so they are unable to accept the patient to their facility. I attempted to call his daughter, , without success. CM will continue to follow and assist with discharge planning/needs. DCP- Discharge Planning Updated by [id number]: Shila Mcclure on 03/25/19 10:[address] Note from weekend states daughter would like referral to [facility] for SNF. I faxed clinical to [facility] and left message with Estelita to return call. Daughter is unavailable at this time to sign BIBIANA form. CM will continue to follow and assist with discharge planning/needs. DCP- Discharge Planning Updated by [email or web address]: Ana Starrman on 03/23/19 12:[address] Patient Name: KAREL WARNER Admission Status: ER Accout number: [id number] Admission Date: 03-20-2019 : 1935 Admission Diagnosis: Attending: KENDAL CARRERA Current LOS: 3 Anticipated DC Date: Planned Disposition: Retirement Facility Primary Insurance: MEDICARE A & B Discharge Planning Comments: DAUGHTER ASKED TO SPEAK WITH CM ABOUT DC PLANS,. SHE HAS WENT TO [facility] AND WOULD LIKE FATHER TO D/C TO THEM WHEN HE IS READY. Facing Grinder: Ana Eliel DCP- Discharge Planning Updated by [email or web address]: Shial Mcclure on 03/22/19 2:[address] Patient Name: KAREL WARNER Admission Status: ER Accout number: [id number] Admission Date: 03-20-2019 : 1935 Admission Diagnosis: Attending: KENDAL CARRERA Current LOS: 2 Anticipated DC Date: Planned Disposition: Retirement Facility Primary Insurance: MEDICARE A & B Discharge Planning Comments: CM met in patient's room with his daughter and Lisa MARI. She states that he is living at [facility], but will be unable to return there. States she would like him to go to a skilled facility. BIBIANA for SNF given with list and numbers. She states she would like to tour some and then let me know her decision. She lives in [place] and will have OP surgery on Monday. I provided her with my business card and wrote the number to weekend field case manager when she knows what SNF she would like her father to go to. She states she will call and let us know. CM will continue to follow and assist with discharge planning/needs. Facing Grinder: Shila Mcclure DCPIA - Discharge Planning Initial Assessment Updated by [id number]: Shila Mcclure on 03/22/19 3:52 pm * Is the patient Alert and Oriented? No * How many steps to enter\exit or inside your home? 0/0 * PCP Dr. Carrera * Pharmacy [facility] * Preadmission Environment Assisted Living * Facility Name [facility] * ADLs Total Dependent * Other Equipment All equipment provided by [facility]/He is wheelchair bound * List name and contact numbers for known caregivers / representatives who currently or will assist patient after discharge: Lisa Warner - DTR and [facility] [phone] * Verbal permission to speak to the caregivers and representatives has been obtained from the patient. Yes * Community resources currently utilized Assisted Living * Please name any agencies selected above. [facility] * Additional services required to return to the preadmission environment? Yes * Can the patient safely return to the preadmission environment? No * Has this patient been hospitalized within the prior 30 days at any hospital? No Coverage Notice Reviewer: [id number] Helen Mcclure Notice Issued Date-Time: 03/26/2019 14:50 Notice Type: Patient Choice Letter Notice Delivered To: Family Member Relationship to Patient: Daughter Airplane Tube Builder Name: Lisa Warner Delivery Method: PHONE - Phone Danae Days: Prior Verbal Notification: Recipient Understood Notice: Yes Recipient Signature: Med Rec Note Co-signed by Attending: Coverage Notice Comment: BIBIANA for [facility] Reviewer: [id number] Mcclure Notice Issued Date-Time: 03/27/2019 14:41 Notice Type: IM Discharge Notice Notice Delivered To: Family Member Relationship to Patient: Daughter Airplane Tube Builder Name: Lisa Warner Delivery Method: PHONE - Phone Danae Days: Prior Verbal Notification: Recipient Understood Notice: Yes Recipient Signature: Med Rec Note Co-signed by Attending: Coverage Notice Comment: IMM explained over the phone, she agrees with discharge to [facility] export: 03/26/19 1:51 p Patient Name: KAREL WARNER Page 66934 at 2895 All edits/amendments must be made on the electronic document DICTATION DATE: 03/27/191453 SYSTEMS ANALYSIS MANAGER: BONNY 03/27/191453 RPT#: [id number] DC DATE: STATUS: ADM IN [facility] [address] [place] [address] END OF REPORT
--- NOTE | 2019-03-30 15:03 | MORECARE ---
CASE MANAGEMENT DISCHARGE SUMMARY PATIENT: KAREL WARNER UNIT: [id number] ADM DATE: 03/20/19 AGE: 84 : 35 SEX: M ROOM/BED: D.2232 AUTHOR: EVELYN,DOC PHYSICIAN: REFERRING PHYSICIAN: KENDAL CARRERA MD DATE OF SERVICE: 03/30/19 Discharge Plan Patient Name: KAREL WARNER Facility: [facility]:[place] : 1935 Planned Disposition: Fci Facility Anticipated Discharge Date: Discharge Date: 03/27/2019 Expected LOS: Initial Reviewer: [email or web address] Initial Review Date: 03/20/2019 Generated: 03/30/19 4:03 pm Comments DCP- Discharge Planning Updated by [email or web address]: Shila Ren on 03/27/19 1:[address] Received acceptance for [facility], discharge orders have already been written. Donna states he will be admitted to [facility]. He is going to a skilled bed. I have called his daughter, , she agrees with discharge. His niece, Rachel Fry, will sign admission papers today. Rachel Fry's number is [phone]. He will need to transport via ambulance. venue coordinator informed. CM will continue to follow and assist with discharge planning/needs. DCP- Discharge Planning Updated by [email or web address]: Shila Ren on 03/26/19 1:[address] I called patient's daughter, , and informed her that he was denied [facility] admission and why. She chose [facility] for SNF. She states that she has him on a waiting list to come their for LTC when available. I called and spoke to karin Tate for [facility], and clinical faxed. CM will continue to follow and assist with discharge planning/needs. DCP- Discharge Planning Updated by [email or web address]: Shila Ren on 03/25/19 12:[address] Received a call from Violeta at [facility]. She states that the patient's was in [facility] and they owe 60,000 dollars so they are unable to accept the patient to their facility. I attempted to call his daughter, , without success. CM will continue to follow and assist with discharge planning/needs. DCP- Discharge Planning Updated by [email or web address]: Shila Mcclure on 03/25/19 10:[address] Note from weekend states daughter would like referral to [facility] for SNF. I faxed clinical to [facility] and left message with Estelita to return call. Daughter is unavailable at this time to sign BIBIANA form. CM will continue to follow and assist with discharge planning/needs. DCP- Discharge Planning Updated by [email or web address]: Ana Julian on 03/23/19 12:[address] Patient Name: KAREL WARNER Admission Status: ER Accout number: [id number] Admission Date: 03-20-2019 : 1935 Admission Diagnosis: Attending: KENDAL CARRERA Current LOS: 3 Anticipated DC Date: Planned Disposition: Fci Facility Primary Insurance: MEDICARE A & B Discharge Planning Comments: DAUGHTER ASKED TO SPEAK WITH CM ABOUT DC PLANS,. SHE HAS WENT TO [facility] AND WOULD LIKE FATHER TO D/C TO THEM WHEN HE IS READY. Sales Advisor: Ana Julian DCP- Discharge Planning Updated by [email or web address]: Shila Mcclure on 03/22/19 2:[address] Patient Name: KAREL WARNER Admission Status: ER Accout number: [id number] Admission Date: 03-20-2019 : 1935 Admission Diagnosis: Attending: KENDAL CARRERA Current LOS: 2 Anticipated DC Date: Planned Disposition: [facility]ci Facility Primary Insurance: MEDICARE A & B Discharge Planning Comments: CM met in patient's room with his daughter and Lisa MARI. She states that he is living at [facility], but will be unable to return there. States she would like him to go to a skilled facility. BIBIANA for SNF given with list and numbers. She states she would like to tour some and then let me know her decision. She lives in [place] and will have OP surgery on Monday. I provided her with my business card and wrote the number to weekend mental health case manager when she knows what SNF she would like her father to go to. She states she will call and let us know. CM will continue to follow and assist with discharge planning/needs. Sales Advisor: Shila Mcclure DCPIA - Discharge Planning Initial Assessment Updated by [email or web address]: Shila Mcclure on 03/22/19 3:52 pm * Is the patient Alert and Oriented? No * How many steps to enter\exit or inside your home? 0/0 * PCP Dr. Carrera * Pharmacy [facility] * Preadmission Environment Assisted Living * Facility Name [facility] * ADLs Total Dependent * Other Equipment All equipment provided by [facility]/He is wheelchair bound * List name and contact numbers for known caregivers / representatives who currently or will assist patient after discharge: Timmy - DTR and [facility] [phone] * Verbal permission to speak to the caregivers and representatives has been obtained from the patient. Yes * Community resources currently utilized Assisted Living * Please name any agencies selected above. [facility] * Additional services required to return to the preadmission environment? Yes * Can the patient safely return to the preadmission environment? No * Has this patient been hospitalized within the prior 30 days at any hospital? No Coverage Notice Reviewer: [id number] Helen Mcclure Notice Issued Date-Time: 03/26/2019 14:50 Notice Type: Patient Choice Letter Notice Delivered To: Family Member Relationship to Patient: Daughter Food Service Lead Name: Lisa Warner Delivery Method: PHONE - Phone Danae Days: Prior Verbal Notification: Recipient Understood Notice: Yes Recipient Signature: Med Rec Note Co-signed by Attending: Coverage Notice Comment: [facility] for [facility] Reviewer: [id number] Helen Mcclure Notice Issued Date-Time: 03/27/2019 14:41 Notice Type: IM Discharge Notice Notice Delivered To: Family Member Relationship to Patient: Daughter Food Service Lead Name: Lisa Warner Delivery Method: PHONE - Phone Danae Days: Prior Verbal Notification: Recipient Understood Notice: Yes Recipient Signature: Med Rec Note Co-signed by Attending: Coverage Notice Comment: IMM explained over the phone, she agrees with discharge to [facility] export: 03/27/19 1:54 p Patient Name: KAREL WARNER Page 59599 at 1503 All edits/amendments must be made on the electronic document DICTATION DATE: 03/30/19 1503 PC TECHNICIAN: BONNY 03/30/19 1503 RPT#: [id number] DC DATE:03/27/19 STATUS: DIS IN [facility] [address] [facility] [place] [address] END OF REPORT
== END 2019-03-27 16:21 | DRG 811 ==
LOC: D.ER 07:59 → D.MS 12:43 → D.EDHOLD 12:43 → D.MS 12:58
PROVIDERS: Family Medicine; Internal Medicine Gastroenterology; ADMIT Family Medicine; ATTEND Family Medicine
DX: D64.9 Anemia, unspecified (principal); E43 Unspecified severe protein-calorie malnutrition; N39.0 Urinary tract infection, site not specified; K92.1 Melena; I69.354 Hemiplegia and hemiparesis following cerebral infarction affecting left non-dominant side; F03.91 Unspecified dementia, unspecified severity, with behavioral disturbance; R41.82 Altered mental status, unspecified; I10 Essential (primary) hypertension; J44.9 Chronic obstructive pulmonary disease, unspecified; E11.9 Type 2 diabetes mellitus without complications

== ENCOUNTER 2019-06-02 16:48 | Inpatient (IN) | payer MEDICARE, OTHER ==
[~2019-06-02] VITALS: Ht 167.6 cm
[~2019-06-02 16:48] MED LIST changes: +LOMOTIL 2.5-0.1 EAC1 PO; +SEROQUEL25 MG PO; -SEROQUEL50 MG PO; +ZOFRAN ODT4 MG/UDTAB PO; +ZOLOFT50 MG PO
[2019-06-02 17:41] LABS: BASOPHILS 0.4 % (0-2); EOSINOPHILS 1.8 % (0-7); HEMATOCRIT 23.6 % (42.0-54.0); HEMOGLOBIN 7.7 g/dL (13.5-17.5); IMMATURE GRANULOCYTES 0.2 % (0-5); MCH 30.9 pg (26.0-34.0); MCHC 32.6 g/dL (31.0-37.0); MCV 94.8 fL (80.0-100.0); NEUTROPHILS 69.6 % (40-80); PLATELET COUNT 140 10x3/uL (130-400); RBC 2.49 10x6/uL (4.20-6.10); RDW 18.8 % (11.5-14.5); WBC 4.5 10x3/uL (4.8-10.8)
[2019-06-02 18:10] LABS: ALBUMIN 2.1 g/dL (3.4-5.0); ANION GAP 10.5 mmol/L (8-16); BILIRUBIN - TOTAL 0.31 mg/dL (0.2-1.3); CREATININE - SERUM 1.3 mg/dL (0.6-1.3); POTASSIUM - SERUM 4.5 mmol/L (3.5-5.1); PROTEIN - SERUM 6.3 g/dL (6.4-8.2)
[2019-06-02 18:12] LABS: APTT 35.9 SECONDS (22.8-39.4); INR 1.11 (0.85-1.17); PROTIME 13.8 SECONDS (11.6-15.0)
--- NOTE | 2019-06-02 19:11 | NUR ---
OCCULT STOOL RESULT POSITIVE , EDP NOTIFIED. PT BRIEF CHANGED. PT REPOSITIONED IN BED. NO S/S OF ACUTE DISTRESS NOTED AT THIS TIME.
[2019-06-02 20:00] VITALS: BP 127/60
--- NOTE | 2019-06-02 20:06 | NUR ---
RN ATTEMPTED TO CONTACT PT NEXT OF KIN LISTED ON PT NH PAPERWORK, NO ANSWER.
--- NOTE | 2019-06-02 20:11 | NUR ---
RN CONTACTED THE [facility] AND SPOKE TO LIT, PT NURSE. ALTERNATE PHONE NUMBER GIVEN FOR PT DAUGHTER, MAKSIM SOLANO, NO ANSWER.
--- NOTE | 2019-06-02 20:25 | NUR ---
VERBAL CONSENT FOR BLOOD TRANSFUSION GIVEN FROM JOSEF REDMOND, PT SON AND POA. BLOOD TRANSFUSION FORMS SIGNED AND WITNESSED.
--- NOTE | 2019-06-02 20:55 | NUR ---
BLOOD TRANSFUSION INITIATED AT THIS TIME.
--- NOTE | 2019-06-02 21:30 | NUR ---
PT RESTING ON BED. EYES CLOSED. NO S/S OF ACUTE DISTRESS NOTED. PT PROVIDED WARM BLANKET.
--- NOTE | 2019-06-02 22:25 | NUR ---
ADMIT TO ROOM 2104 FROM ER VIA STRETCHER. MAX X3 FOR TRANSFER TO BED. PT WITH EYES CLOSED, CHANTING "PLEASE LET THEM GO, PLEASE LET THEM GO". HE IS INCONTINENT OF BM. CARE PROVIDED. BUTTOCKS/SACRAL AREA IS REDDENED. 1ST UNIT OF PRBCS IS NOW COMPLETED AND NS IS INFUSING @ 125ML/HR + PROTONIX DRIP AT 10ML/HR. IV'S TO LFA AND RIGHT WRIST. PT ALSO HAS MULTIPLE BANDAIDS ON HIS KNEES AND ELBOWS. WILL SETTLE PATIENT INTO UNIT/PROVIDE A BATH AND THEN START SECOND UNIT OF PRBCS.
--- NOTE | 2019-06-02 23:29 | NUR ---
CANCELLED 2300 H\H SINCE PATIENT STILL HAS ONE UNIT OF BLOOD TO BE GIVEM. WILL RECHECK IN AM.
[2019-06-02 23:44] VITALS: BP 134/54
[2019-06-03 00:15] VITALS: BP 138/62
--- NOTE | 2019-06-03 02:59 | NUR ---
2ND UNIT OF PRBCS UP AND INFUSING TO RIGHT WRIST AT 2355. PT WILL ANSWER SIMPLE QUESTIONS, IN BETWEEN, HE CONTINUES TO CHANT THE SAME PHRASES OVER AND OVER. IV PROTONIX ALSO INFUSING.
[2019-06-03 04:00] VITALS: BP 124/68; BP 142/66
--- NOTE | 2019-06-03 04:19 | NUR ---
PRBCS COMPLETED AND VSS. PT STILL CHANTING TO SELF. IV PROTONIX INFUSING. IV NS INFUSING.
--- NOTE | 2019-06-03 04:36 | NUR ---
I have reviewed this patient and I concur with the Shift Assessment completed by the Licensed Practical Nurse today this shift.
--- NOTE | 2019-06-03 05:03 | NUR ---
110 UCAF. ROOM AIR. UP IN BEDSIDE CHAIR. HAS NOT SLEPT ENTIRE NIGHT. LEFT ARM DRESSING C/D/I. NO CHANGE FROM INITIAL SHIFT ASSESSMENT.
--- NOTE | 2019-06-03 05:14 | NUR ---
83/SR PER TELEMETRY. PT RESTING. CARE FOR INCONTINENCE PROVIDED.
[2019-06-03 05:49] LABS: ALBUMIN 2.2 g/dL (3.4-5.0); ALKALINE PHOSPHATASE 149 U/L (46-116); CALC OSMOLALITY 284 mosm/kg (275-300); CALCIUM 8.1 mg/dL (8.5-10.1); CARBON DIOXIDE 23.9 mmol/L (21.0-32.0); CHLORIDE - SERUM 107 mmol/L (98-107); GLUCOSE 83 mg/dL (74-106); POTASSIUM - SERUM 4.3 mmol/L (3.5-5.1); PROTEIN - SERUM 6.5 g/dL (6.4-8.2); SODIUM 140 mmol/L (136-145); UREA NITROGEN 32 mg/dL (7-18); eGFR NON AFRICAN AMERICAN 76 mL/min (90-120)
[2019-06-03 05:51] LABS: ALT (SGPT) 15 U/L (10-68)
[2019-06-03] MEDS ORDERED: C-10001000 MG PO (06:13)
[2019-06-03] MEDS ORDERED: REMERON30 MG PO (06:15)
[2019-06-03] MEDS ORDERED: MULTI-DAY VITAM1 TAB PO (06:17)
[2019-06-03] MEDS ORDERED: ATIVAN0.5 MG PO (06:22)
[2019-06-03 06:36] LABS: HEMATOCRIT 29.8 % (42.0-54.0); MCH 30.6 pg (26.0-34.0); MCHC 33.6 g/dL (31.0-37.0); MCV 91.1 fL (80.0-100.0); MEAN PLATELET VOLUME 9.9 fL (7.4-10.4); PLATELET COUNT 138 10x3/uL (130-400); RBC 3.27 10x6/uL (4.20-6.10); RDW 17.7 % (11.5-14.5); WBC 2.8 10x3/uL (4.8-10.8)
--- NOTE | 2019-06-03 07:46 | NUR ---
REPORT RECEIVED. WILL CONTINUE WITH POC. PT CURRENTLY LYING SEMI FOWLERS. CALL LIGHT W/I REACH. PT IS RESTING AT THE MOMENT. RR EVEN AND UNLABORED ON RA. NS INFUSING @125ML/HR AND PROTONIX INFUSING @10ML/HR VIA L.WRIST PIV. R.HAND PIV IS SALINE LOCKED. NO S/S OF DISTRESS NOTED. PT DENIES ANY NEEDS. WILL CTM.
[2019-06-03 08:03] VITALS: BP 119/53
--- NOTE | 2019-06-03 08:48 | NUR ---
PT HAD BM AND VOIDED. CLEANED PT AND APPLIED NEW LINEN. PREOP MEDS ADMINISTERED. NS INFUSING @KVO VIA L.FOR PIV. WILL CTM.
[2019-06-03 09:02] LABS: ACANTHOCYTES OCC; ANISOCYTOSIS OCC; CRENATED CELLS OCC; EOSINOPHILS 1 % (0-7); LYMPHOCYTES 24 % (15-50); MONOCYTES 9 % (2-11); NEUTROPHILS 66 % (40-80); PLATELET ESTIMATE NORMAL; POIKILOCYTOSIS OCC; ROULEAUX OCC
[2019-06-03 11:41] VITALS: BP 127/62
[2019-06-03 13:36] VITALS: Ht 167.6 cm
[2019-06-03 15:36] VITALS: BP 123/59
--- NOTE | 2019-06-03 15:49 | NUR ---
I have reviewed this patient and I concur with the Shift Assessment completed by the Licensed Practical Nurse today this shift.
--- NOTE | 2019-06-03 19:52 | NUR ---
ROUNDS COMPLETED. VSS, AAOX1, NO S/S OF DISTRESS. PT APPEARS CONFUSED, JEREMY INNAPROPRAITE WORDS. PT HAVE HAD 2 BM SINCE CHANGE OF SHIFT. CLEANED PT UP AND PROVIDED CLEAN LINENS. BED ALARM ON. PT DENIES ANY FURTHER NEEDS AT THIS TIME. WILL CTM.
[2019-06-03 20:00] VITALS: BP 116/60
[2019-06-04] VITALS: BP 142/76
[2019-06-04 04:00] VITALS: BP 140/73
[2019-06-04 05:13] LABS: BASOPHILS 0.7 % (0-2); HEMATOCRIT 29.8 % (42.0-54.0); HEMOGLOBIN 10.1 g/dL (13.5-17.5); IMMATURE GRANULOCYTES 0.3 % (0-5); LYMPHOCYTES 24.9 % (15-50); MCH 31.2 pg (26.0-34.0); MCHC 33.9 g/dL (31.0-37.0); MEAN PLATELET VOLUME 9.7 fL (7.4-10.4); MONOCYTES 15.2 % (2-11); NEUTROPHILS 55.9 % (40-80); PLATELET COUNT 123 10x3/uL (130-400); RBC 3.24 10x6/uL (4.20-6.10); RDW 17.9 % (11.5-14.5)
[2019-06-04 05:29] LABS: CALCIUM 7.9 mg/dL (8.5-10.1); CARBON DIOXIDE 23.3 mmol/L (21.0-32.0); CHLORIDE - SERUM 109 mmol/L (98-107); CREATININE - SERUM 0.9 mg/dL (0.6-1.3); SODIUM 142 mmol/L (136-145); eGFR NON AFRICAN AMERICAN 85 mL/min (90-120)
[2019-06-04 05:34] LABS: CALC OSMOLALITY 282 mosm/kg (275-300); GLUCOSE 59 mg/dL (74-106); POTASSIUM - SERUM 3.5 mmol/L (3.5-5.1); UREA NITROGEN 19 mg/dL (7-18)
--- NOTE | 2019-06-04 06:44 | NUR ---
PT HAD A BM ACCIDENT. CLEANED PT UP PROVIDED FRESH GOWNS AND LINENS. PT VOICED THANK. WILL CTM.
[2019-06-04 08:13] VITALS: BP 139/78
[2019-06-04] MEDS ORDERED: SEROquel PO (12:19)
--- NOTE | 2019-06-04 15:26 | MORECARE ---
CASE MANAGEMENT DISCHARGE SUMMARY PATIENT: KAREL SOLANO UNIT: [id number] ADM DATE: 06/02/19 AGE: 84 : 35 SEX: M ROOM/BED: D.2104 AUTHOR: BOSTON RIVAS PHYSICIAN: REFERRING PHYSICIAN: KENDAL CARRERA MD DATE OF SERVICE: 06/04/19 Discharge Plan Patient Name: KAREL SOLANO Facility: [facility]:[place] : 1935 Planned Disposition: Nursing Facility [facility] Cert Anticipated Discharge Date: 06/04/19 Discharge Date: Expected LOS: 2 Initial Reviewer: [email or web address] Initial Review Date: 06/04/2019 Generated: 06/04/19 4:26 pm DCPIA - Discharge Planning Initial Assessment Updated by [email or web address]: Gabriele Barillas on 06/04/19 3:25 pm * Is the patient Alert and Oriented? Yes * How many steps to enter\exit or inside your home? NONE * PCP DR. EPREA OR DR MCALLISTER * Pharmacy [facility] CONTRACTED PROVIDER * Preadmission Environment Mental Tester Longterm * Facility Name [facility] * ADLs Partial Dependent * Partial ADLs (Assistance needed) Ambulation Bathing Dressing Medication Management Toileting Transfers * Equipment Wheelchair * Other Equipment ALL MEDICAL EQUIPMENT PROVIDED BY [facility] * List name and contact numbers for known caregivers / representatives who currently or will assist patient after discharge: MAKSIM SOLANO, DTR, * Verbal permission to speak to the caregivers and representatives has been obtained from the patient. N/A * Community resources currently utilized None * Please name any agencies selected above. NONE * Additional services required to return to the preadmission environment? No * Can the patient safely return to the preadmission environment? Yes * Has this patient been hospitalized within the prior 30 days at any hospital? No External Providers External Provider: [facility] Next Contact Date: 06/04/2019 Service Request Date: Service Type: Resolution: Reviewer: Comments: Patient Name: KAREL SOLANO Page [id number] at 1526 All edits/amendments must be made on the electronic document DICTATION DATE: 06/04/191525 VICE PRESIDENT FINANCIAL: BONNY 06/04/191525 RPT#: [id number] DC DATE: STATUS: ADM IN [facility] [address] [place] [address] END OF REPORT
--- NOTE | 2019-06-04 15:34 | MORECARE ---
CASE MANAGEMENT DISCHARGE SUMMARY PATIENT: KAREL SOLANO UNIT: [id number] ADM DATE: 06/02/19 AGE: 84 : 35 SEX: M ROOM/BED: D.2109 AUTHOR: EVELYN,DOC PHYSICIAN: REFERRING PHYSICIAN: KENDAL CARRERA MD DATE OF SERVICE: 06/04/19 Discharge Plan Patient Name: KAREL SOLANO Facility: [facility]:[place] : 1935 Planned Disposition: Nursing Facility [facility] Cert Anticipated Discharge Date: 06/04/19 Discharge Date: Expected LOS: 2 Initial Reviewer: [email or web address] Initial Review Date: 06/04/2019 Generated: 06/04/19 4:34 pm Comments DCP- Discharge Planning Updated by [email or web address]: Gabriele Barillas on 06/04/19 2:[address] Patient Name: KAREL SOLANO Admission Status: ER Accout number: [id number] Admission Date: 06-02-2019 : 1935 Admission Diagnosis:HEMATEMESIS Attending: KENDAL CARRERA Current LOS: 2 Anticipated DC Date: 06-04-2019 Planned Disposition: Nursing Facility [facility]AC[facility] Cert Primary Insurance: MEDICARE A & B Discharge Planning Comments: CM RECEIVED DISCHARGE ORDER, MET WITH PT IN ROOM TO DISCUSS DISCHARGE PLANNING AND NEEDS. PT REPORTS LIVING AT THE [facility]. PT IS NOT HAPPY AT THE [facility] BUT HAS TO LIVE THERE. PT STATES HE NO LONGTER HAS A FIRST NAME BECAUSE HE DOESN'T WANT TO HAVE A NAME ANY MORE. PT REPORTS HE HIS OUT OF BED WITH ASSISTANCE AT THE [facility] AND IS UP IN A WHEELCHAIR THERE. PT DENIES DISCHARGE NEEDS, IS NOT SURE IF HE LIVES IN THE [place] OR [facility]. CM OFFERED TO CALL FAMILY TO LET THEM KNOW IF HIS DISCHARGE, PT REPORTS THERE IS NO ONE TO CALL. CM REVIEWED PT'S CHART, LOCATED EMERGENCY CONTACT, MAKSIM SOLANO, DTR, ; CM CALLED AND NOTIFIED MAKSIM WHO IS IN AGREEMENT WITH DISCHARGE BACK TO THE [facility]. CM NOTIFIED KELVIN OF [facility], FAXED DISCHARGE INFORMATION TO [facility], . NURSE REPORT TO BE CALLED TO [facility] AT [phone]. [facility] TO PROVIDE VAN TRANSPORT AT OR AFTER 4PM TODAY. Turntable Worker: Gabriele Barillas DCPIA - Discharge Planning Initial Assessment Updated by [email or web address]: Gabriele Barillas on 06/04/19 3:25 pm * Is the patient Alert and Oriented? Yes * How many steps to enter\exit or inside your home? NONE * PCP DR. PEREA OR DR MCALLISTER * Pharmacy [facility] CONTRACTED PROVIDER * Preadmission Environment Packaging Engineer Correction * Facility Name [facility] * ADLs Partial Dependent * Partial ADLs (Assistance needed) Ambulation Bathing Dressing Medication Management Toileting Transfers * Equipment Wheelchair * Other Equipment ALL MEDICAL EQUIPMENT PROVIDED BY [facility] * List name and contact numbers for known caregivers / representatives who currently or will assist patient after discharge: MAKSIMRosemary SOLANO, DTR, * Verbal permission to speak to the caregivers and representatives has been obtained from the patient. N/A * Community resources currently utilized None * Please name any agencies selected above. NONE * Additional services required to return to the preadmission environment? No * Can the patient safely return to the preadmission environment? Yes * Has this patient been hospitalized within the prior 30 days at any hospital? No Last DP export: 06/04/19 2:26 p Patient Name: KAREL SOLANO Page [phone] at 1534 All edits/amendments must be made on the electronic document DICTATION DATE: 06/04/191533 GRAPHIC PRE PRESS TRADES WORKER: BONNY 06/04/191533 RPT#: [id number] DC DATE: STATUS: ADM IN [facility] [address] [place] [address] END OF REPORT
== END 2019-06-04 16:44 | DRG 378 ==
LOC: D.ER 16:48 → D.M2 20:30
PROVIDERS: Family Medicine; Internal Medicine Gastroenterology; ADMIT Family Medicine; ATTEND Family Medicine
PROC: 0DB68ZX Excision of Stomach, Via Natural or Artificial Opening Endoscopic, Diagnostic (ICD-10-PCS; principal; 2019-06-03 09:11)
DX: K29.71 Gastritis, unspecified, with bleeding (principal); I69.354 Hemiplegia and hemiparesis following cerebral infarction affecting left non-dominant side; F05 Delirium due to known physiological condition; D62 Acute posthemorrhagic anemia; K44.9 Diaphragmatic hernia without obstruction or gangrene; K21.0 Gastro-esophageal reflux disease with esophagitis; E11.9 Type 2 diabetes mellitus without complications; I10 Essential (primary) hypertension; E78.5 Hyperlipidemia, unspecified

== ENCOUNTER 2019-10-31 14:44 | Emergency (ER) | payer MEDICARE, OTHER ==
[~2019-10-31] VITALS: Ht 167.6 cm; Wt 50.0 kg
[~2019-10-31 14:44] MED LIST changes: +ATIVAN0.5 MG PO; +C-10001000 MG PO; +MULTI-DAY VITAM1 TAB PO; +REMERON30 MG PO; +SEROquel PO
[2019-10-31 14:57] VITALS: Ht 167.6 cm; Wt 50.0 kg
[2019-10-31 19:15] VITALS: BP 132/76
== END 2019-10-31 19:19 | disposition other institution (70) ==
LOC: D.ER 14:44
DX: S06.5X9A Traumatic subdural hemorrhage with loss of consciousness of unspecified duration, initial encounter (principal); X58.XXXA Exposure to other specified factors, initial encounter; Z86.73 Personal history of transient ischemic attack (TIA), and cerebral infarction without residual deficits; Z51.5 Encounter for palliative care; E11.40 Type 2 diabetes mellitus with diabetic neuropathy, unspecified; Z79.84 Long term (current) use of oral hypoglycemic drugs; I10 Essential (primary) hypertension; E78.5 Hyperlipidemia, unspecified; J44.9 Chronic obstructive pulmonary disease, unspecified